=== PATIENT | female | born 1955 | race Caucasian/White ===

== ENCOUNTER 2020-09-07 22:07 | Outpatient (RCR) | payer MEDICARE, OTHER, SELFPAY ==
[2016-08-16 11:05] VITALS: BMI 23.2
[2020-09-07] MEDS: COVID-19 VACC, MRNA(PFIZER)/PF 30 MCG/0.3 ML SYRINGE IM (17:28)
[2020-09-28] MEDS: COVID-19 VACC, MRNA(PFIZER)/PF 30 MCG/0.3 ML SYRINGE IM (17:04)
== END 2020-12-12 23:59 ==
LOC: IMMUN 22:07
PROVIDERS: PCP Internal Medicine; Visit Provider Family Medicine
DX: Z23 Encounter for immunization (principal)
CPT/HCPCS: 0001A; 0002A; 91300

== ENCOUNTER → 2021-02-12 07:04 | Outpatient (CLI) | payer MEDICARE, OTHER, SELFPAY ==
[2016-08-16 11:05] VITALS: BMI 23.2
[2021-02-12 10:50] LABS: Vitamin D,25 Hydroxy > 150.0 ng/mL (29.95-100.01)
[2021-02-12 11:02] LABS: ALB/GLOB Ratio 1.1 RATIO (0.9-2.4); AST(SGOT) 17 U/L (15-37); Alanine Aminotransfer ALT/SGPT 22 U/L (13-56); Albumin, Serum 3.9 g/dL (3.2-5.0); Alkaline Phosphatase 101 U/L (45-117); Anion Gap 8 (5-15); BUN 15 mg/dL (7-18); BUN/Creat Ratio 20.9 RATIO (10-20); Calcium,Total 8.9 mg/dL (8.5-10.1); Chloride 109 mmol/L (98-107); Cholesterol 172 mg/dL (200); Creatinine, Serum 0.72 mg/dL (0.55-1.02); EST Glomerular Filtration Rate 86 mL/min (>60); Est Glom Filt Rate - Afr Amer 105 mL/min (>60); Globulin 3.5 g/dL (2.2-4.2); Glucose 86 mg/dL (74-106); High Density Lipoprotein 58 mg/dL; Protein, Total 7.4 g/dL (6.4-8.2); Sodium Level 142 mmol/L (136-145); T4 Free Direct 0.98 ng/dL (0.76-1.46); Thyroid Stim Hormone (TSH) 1.15 uIU/mL (0.358-3.74); Triglycerides 92 mg/dL; Very Low Density Lipoprotein 18 mg/dL (5-40)
== END ==
PROVIDERS: PCP Internal Medicine; Referring Provider Internal Medicine; Visit Provider Internal Medicine
DX: E78.00 Pure hypercholesterolemia, unspecified (principal); E03.9 Hypothyroidism, unspecified; E55.9 Vitamin D deficiency, unspecified
CPT/HCPCS: 36415; 80053; 80061; 82306; 84439; 84443

== ENCOUNTER → 2021-06-06 14:57 | Outpatient (CLI) | payer MEDICARE, OTHER, SELFPAY ==
[2021-06-06 18:07] LABS: Vitamin D,25 Hydroxy 57.2 ng/mL
== END ==
PROVIDERS: PCP Internal Medicine; Referring Provider Internal Medicine; Visit Provider Internal Medicine
DX: E55.9 Vitamin D deficiency, unspecified (principal); I10 Essential (primary) hypertension; E03.9 Hypothyroidism, unspecified; E78.00 Pure hypercholesterolemia, unspecified
CPT/HCPCS: 36415; 82306

== ENCOUNTER 2021-08-05 11:01 | Outpatient (CLI) | payer MEDICARE, OTHER, SELFPAY ==
--- NOTE | 2021-08-05 11:03 | RAD_ITS ---
STUDY: X-RAY CHEST REASON FOR EXAM: Female, 65 years old. cough TECHNIQUE: PA and lateral views of the chest. COMPARISON: 08/16/2016 FINDINGS: The lungs are clear and expanded. There is no demonstrated pleural abnormality. Normal size heart. Normal mediastinum and laurent. Normal visualized pulmonary arteries. Normal visualized aortic arch and descending thoracic aorta. Normal visualized thoracic spine. Normal visualized ribs, clavicles, and shoulders. There is no demonstrated abnormality of the visualized soft tissue structures of the upper abdomen. RAD/Chest PA and Lateral IMPRESSION: Normal x-ray examination of the chest. Electronically Signed: Bao Richter MD at 11:19 EST ,
== END 2021-08-05 23:59 | disposition short-term general hospital (02) ==
LOC: RAD 11:03
PROVIDERS: PCP Internal Medicine; Visit Provider Physician Assistant
DX: R05.9 Cough, unspecified (principal)
CPT/HCPCS: 71046

== ENCOUNTER 2021-09-15 07:41 | Outpatient (CLI) | payer MEDICARE, OTHER, SELFPAY ==
[2021-09-15 08:04] LABS: Absolute Lymphocyte Count 2.13 X10^3/uL (0.83-4.51); Basophil# 0.03 X10^3/uL; Basophil% 0.4 % (0-1); Eosinophil# 0.16 X10^3/uL; Hematocrit 42.4 % (37-47); Hemoglobin 13.8 g/dL (12.0-15.0); Lymphocyte # 2.13 X10^3/ul (0.83-4.51); Lymphocyte % 26.2 % (19-41); Mean Corp Hgb Conc 32.5 g/dL (32-36); Mean Corpuscular Hgb 29.5 pg (27.0-32.0); Mean Corpuscular Volume 90.6 fL (81-99); Mean Platelet Vol. 8.6 fl (6.2-12.0); Monocyte# 0.73 X10^3/uL; NRBC Flagged by Analyzer 0 % (0-5); Neutrophil # 5.04 X10^3/uL (2.7-7.7); Neutrophil % 61.9 % (47-70); Platelet Count 381 K/mm3 (150-450); RBC Distribution Width SD 42.8 fl (35.1-43.9); Red Blood Count 4.68 M/mm3 (4.2-5.4); White Blood Count 8.1 K/mm3 (4.4-11.0)
[2021-09-15 08:42] LABS: AST(SGOT) 17 U/L (15-37); Alanine Aminotransfer ALT/SGPT 22 U/L (13-56); Albumin, Serum 3.5 g/dL (3.2-5.0); Alkaline Phosphatase 106 U/L (45-117); Anion Gap 2 (5-15); BUN 12 mg/dL (7-18); BUN/Creat Ratio 14.5 RATIO (10-20); Chloride 111 mmol/L (98-107); Cholesterol 154 mg/dL (200); Creatinine, Serum 0.83 mg/dL (0.55-1.02); EST Glomerular Filtration Rate 73 mL/min (>60); Est Glom Filt Rate - Afr Amer 88 mL/min (>60); Globulin 3.6 g/dL (2.2-4.2); Glucose 98 mg/dL (74-106); High Density Lipoprotein 51 mg/dL; Potassium 4.4 mmol/L (3.5-5.1); Protein, Total 7.1 g/dL (6.4-8.2); Sodium Level 141 mmol/L (136-145); T4 Free Direct 1.01 ng/dL (0.76-1.46); Thyroid Stim Hormone (TSH) 1.08 uIU/mL (0.358-3.74); Triglycerides 104 mg/dL; Very Low Density Lipoprotein 21 mg/dL (5-40)
[2021-09-17 08:44] LABS: Vitamin D,25 Hydroxy 60.8 ng/mL
== END 2021-09-15 23:59 | disposition home or self-care (01) ==
LOC: LAB 07:44
PROVIDERS: PCP Internal Medicine; Referring Provider Internal Medicine; Visit Provider Internal Medicine
DX: Z00.00 Encounter for general adult medical examination without abnormal findings (principal); Z13.820 Encounter for screening for osteoporosis; E55.9 Vitamin D deficiency, unspecified; E03.9 Hypothyroidism, unspecified; E78.00 Pure hypercholesterolemia, unspecified; I10 Essential (primary) hypertension
CPT/HCPCS: 36415; 80053; 80061; 82306; 84439; 84443; 85025

== ENCOUNTER 2021-09-20 13:52 | Outpatient (CLI) | payer MEDICARE, OTHER, SELFPAY ==
--- NOTE | 2021-09-20 13:54 | BI_ITS ---
MAMMOGRAPHY - BILATERAL SCREENING 3-D TOMOSYNTHESIS REASON FOR EXAM: Female, 65 years old. SCREENING PERTINENT HISTORY: No significant family history. TECHNIQUE: 2-D mammograms and 3-D Tomosynthesis of the breast (s) were performed. CAD was performed. COMPARISON: 05/08/2020 FINDINGS: The breast composition is composed of scattered fibroglandular density. Scattered benign calcifications are seen. No dense spiculated masses or suspicious microcalcifications are identified. No architectural distortion is identified. There is no skin thickening or retraction. There has been no significant change since the prior study. BI/SCRN MAMM (CAD)W/MAMTA BILAT IMPRESSION: No mammographic signs of malignancy. Routine yearly mammograms recommended. ASSESSMENT CATEGORY: BIRADS Category 1: Negative. A letter regarding these results will be sent to the patient by the facility within 30 days. FOLLOW UP RECOMMENDATION: Yearly follow up mammogram recommended. (A) Approximately 10% of breast cancers are not detected by mammography. A normal mammogram should not delay biopsy of a clinically suspicious abnormality. Electronically Signed: Bao Richter MD at 17:16 EDT ,
--- NOTE | 2021-09-20 13:55 | BD_ITS ---
STUDY: DUAL ENERGY X-RAY ABSORPTIOMETRY / DXA REASON FOR EXAM: Female, 65 years old. Z780. The patient is postmenopausal. TECHNIQUE: Bone Mineral Density (BMD) measurements of lumbar spine and bilateral hips were obtained. COMPARISON: None. FINDINGS: Lumbar Spine (L1-L4): g/cm2 (0.890) / T-score (-1.4) / Z-score (0.5) Findings are suggestive of osteopenia with a low fracture risk. Left Femur Total: g/cm2 (0.735) / T-score (-1.7) / Z-score (-0.3) Left Femoral Neck: g/cm2 (0.668) / T-score (-1.6) / Z-score (0.0) Right Femur Total: g/cm2 (0.814) / T-score (-1.0) / Z-score (0.3) Right Femoral Neck: g/cm2 (0.727) / T-score (-1.1) / Z-score (0.6) BD/Dexa Bone Density Study IMPRESSION: The patient is considered osteopenic as outlined below according to World Charlie Organization (WHO) criteria with a moderate fracture risk. Reference Information: The T-score is the number of standard deviations above or below the standard which is normal for young adults at their peak bone mineral density. The World Health Organization (WHO) interprets the T-scores as follows: Above -1 Normal bone density Between -1 and -2.5 Osteopenia Equal to / or below -2.5 Osteoporosis As a practical clinical guideline, osteopenia may be graded as follows: Mild -1 through -1.5 Moderate -1.6 through -2.0 Severe -2.1 through -2.4 The Z-score is the number of standard deviations above or below age-matched controls. A Z-score of less than -1.5 would be considered abnormal. References: 1. NIH Osteoporosis and Related Bone Diseases www osteo.org 2. International Society for Clinical Densitometry www iscd.org 3. National Osteoporosis Foundation www nof.org Electronically Signed: Americo Mcallister MD at 14:28 EDT ,
== END 2021-09-20 23:59 | disposition home or self-care (01) ==
LOC: OPBD 13:52
PROVIDERS: PCP Internal Medicine; Referring Provider Internal Medicine; Visit Provider Internal Medicine
DX: Z12.31 Encounter for screening mammogram for malignant neoplasm of breast (principal); Z13.820 Encounter for screening for osteoporosis; Z78.0 Asymptomatic menopausal state
CPT/HCPCS: 77063; 77067; 77080

== ENCOUNTER → 2022-11-18 | Outpatient (CLI) | payer MEDICARE, OTHER, SELFPAY ==
[2022-11-18 10:26] LABS: Absolute Lymphocyte Count 1.78 X10^3/uL (0.83-4.51); Absolute Neutrophil Count 3.7 X10^3/uL (2.0-7.7); Basophil# 0.02 X10^3/uL; Basophil% 0.3 % (0-1); Eosinophil# 0.16 X10^3/uL; Eosinophils% 2.5 % (0-5); Hematocrit 42.2 % (37-47); Hemoglobin 12.8 g/dL (12.0-15.0); Lymphocyte # 1.78 X10^3/ul (0.83-4.51); Lymphocyte % 28.3 % (19-41); Mean Corp Hgb Conc 30.3 g/dL (32-36); Mean Corpuscular Hgb 28.4 pg (27.0-32.0); Mean Corpuscular Volume 93.6 fL (81-99); Mean Platelet Vol. 9.6 fl (6.2-12.0); Monocyte# 0.65 X10^3/uL; Monocyte% 10.4 % (0-10); NRBC Flagged by Analyzer 0 % (0-5); Neutrophil # 3.66 X10^3/uL (2.7-7.7); Neutrophil % 58.3 % (47-70); Platelet Count 397 K/mm3 (150-450); RBC Distribution Width SD 44.6 fl (35.1-43.9); Red Blood Count 4.51 M/mm3 (4.2-5.4); White Blood Count 6.3 K/mm3 (4.4-11.0)
[2022-11-18 10:41] LABS: Vitamin D,25 Hydroxy 47.6 ng/mL
[2022-11-18 10:50] LABS: ALB/GLOB Ratio 0.8 RATIO (0.9-2.4); AST(SGOT) 20 U/L (15-37); Alanine Aminotransfer ALT/SGPT 24 U/L (13-56); Albumin, Serum 3.3 g/dL (3.2-5.0); Alkaline Phosphatase 98 U/L (45-117); Anion Gap 5 (5-15); BUN 24 mg/dL (7-18); BUN/Creat Ratio 31.9 RATIO (10-20); Calcium,Total 8.7 mg/dL (8.5-10.1); Chloride 111 mmol/L (98-107); Cholesterol 151 mg/dL (200); Creatinine, Serum 0.75 mg/dL (0.55-1.02); EST Glomerular Filtration Rate 81 mL/min (>60); Est Glom Filt Rate - Afr Amer 98 mL/min (>60); Globulin 3.9 g/dL (2.2-4.2); Glucose 90 mg/dL (74-106); High Density Lipoprotein 56 mg/dL; Protein, Total 7.2 g/dL (6.4-8.2); Sodium Level 142 mmol/L (136-145); T4 Free Direct 0.91 ng/dL (0.76-1.46); Thyroid Stim Hormone (TSH) 1.27 uIU/mL (0.358-3.74); Triglycerides 80 mg/dL; Very Low Density Lipoprotein 16 mg/dL (5-40)
== END | disposition home or self-care (01) ==
PROVIDERS: PCP Internal Medicine; Referring Provider Internal Medicine; Visit Provider Internal Medicine
DX: I10 Essential (primary) hypertension (principal); E78.00 Pure hypercholesterolemia, unspecified; E03.9 Hypothyroidism, unspecified; E55.9 Vitamin D deficiency, unspecified
CPT/HCPCS: 36415; 80053; 80061; 82306; 84439; 84443; 85025

== ENCOUNTER 2023-05-30 18:38 | Emergency (ER) | payer MEDICARE, OTHER, SELFPAY ==
[2023-05-30 18:39] VITALS: BP 141/100; PULSE 78; RESP 16; TEMP 36.8; O2SAT 100; BMI 27.4
--- NOTE | 2023-05-30 19:04 | EDS_ITS ---
HPI History of Present Illness HPI Narrative: Patient presents with left hand injury that occurred after a fall today. Patient states she tripped and fell. Patient landed on her outstretched left hand. Patient describes her pain as aching. Patient states nothing makes it worse and nothing makes it better. Patient denies any paresthesias or weakness. Patient denies any head injury or loss of consciousness. Patient states she has been unable to remove her rings since the fall. Chief Complaint: Upper Extremity Injury Informant: patient Occured/Mechanism Mechanism/Context: Yes fall Onset/Context/Timing Onset: Today Context: Sudden Onset Quality of Pain: Aching Location: Left hand Worsened by: Nothing Relieved by: Nothing Associated Symptoms Associated Symptoms: Negative for Parasthesia, Weakness or Loss of Funtion PFSH PFSH Medical History Depression Hyperlipidemia Hypothyroid Home Medications ergocalciferol (vitamin D2) 1,250 mcg (50,000 unit) capsule (Vitamin D2) 50,000 unit PO Q14D 08/16/16 [History Last Taken Unknown] levothyroxine 25 mcg tablet 50 mcg PO DAILY 08/16/16 [History Last Taken Unknown] atorvastatin 20 mg tablet 20 mg PO QHS 07/29/21 [History Last Taken Unknown] levothyroxine 50 mcg tablet (Euthyrox) 50 mcg PO DAILY 07/29/21 [History Last Taken Unknown] sertraline 50 mg tablet 50 mg PO DAILY 07/29/21 [History Last Taken Unknown] dextromethorphan-guaifenesin 5 mg-100 mg/5 mL oral liquid (Robitussin Cough- Chest Congestion DM) 10 ml PO Q8H PRN cough #237 mL 08/05/21 [Rx Last Taken Unknown] Allergy/AdvReac Type Severity Reaction Status Date / Time sulfamethoxazole Allergy Rash Verified 05/30/23 18:38 [From Bactrim] trimethoprim [From Bactrim] Allergy Rash Verified 05/30/23 18:38 Surgical History H/O knee surgery History of colon resection Social History Smoking Status: Former smoker ROS ROS ED Constitutional Constitutional ED: Denies chills or fever(s) Eyes Eyes: Denies blurry vision or change in vision ENT ENT ED: Denies rhinorrhea or sore throat Cardiovascular Cardiovascular: Denies chest pain or palpitations Respiratory/Chest Respiratory/Chest: Denies cough or dyspnea Gastrointestinal Gastrointestinal: Reports nausea; Denies vomiting Genitourinary Genitourinary ED: Denies dysuria or hematuria Musculoskeletal Musculoskeletal: Denies back pain or neck pain Integumentary Denies abscess or rash Neurologic Neurologic: Denies headache(s) or weakness Allergic/Immunologic Allergic/Immunologic ED: Denies mouth swelling or urticaria EXAM Physical Exam Const Vital Signs: 05/30/23 18:39 Temperature 98.3 F Temperature Source Temporal Pulse Rate 78 Respiratory Rate 16 Blood Pressure 141/100 H Blood Pressure Mean 113 Pulse Ox 100 Oxygen Delivery Method Room Air Positive well nourished and well developed General Appearance ED: well developed and NAD HEENT Reports moist mucous membranes Neck full ROM and supple Extremity Extremity Narrative: There is numbness, edema, and ecchymosis over the fourth and fifth metacarpal area. There is no obvious deformity noted. Range of motion was limited in all motions of the fourth and fifth digits secondary to pain. Radial pulses are equal bilaterally. Sensation was intact to light touch in the radial, median, and ulnar areas. Strength is 5/5 in the radial, median, and ulnar areas. Neuro oriented x3, CN's II-XII intact bilaterally, moves all extremities, no focal motor deficits and no sensory deficits noted Sensorium / Orientation: alert Motor Exam: strength 5/5 throughout Psych mental status grossly normal MDM MDM MDM Narrative Medical decision making narrative: Differential diagnosis includes sprain, fracture, and contusion. X-rays of the left hand will be obtained to assess for fracture. Radiography Diagnostic Testing: X-rays of the left hand were obtained. There are 3 views. On my independent interpretation, there is no acute fracture or dislocation. Radiologist also interpreted the x-rays and agrees. Treatment and Re-Evaluation Narrative: Patient was advised of her findings. Patient was instructed to ice and elevate the left hand. Patient was given a Velcro wrist splint. Patient was instructed to use Tylenol or ibuprofen as needed for pain. Patient was instructed to follow-up with her primary care physician in 5 to 7 days. Patient understood and was agreeable with the plan. All questions were answered. Discharge Plan Triage Chief Complaint: Upper Extremity Injury ED Provider: Jorden Mejia Dx/Rx/DC Orders Clinical Impression: Fall, Contusion of left hand, initial encounter Instructions: ED Hand Contusion Prescriptions: No Action levothyroxine [Euthyrox] 50 mcg tablet 50 mcg PO DAILY atorvastatin 20 mg tablet 20 mg PO QHS sertraline 50 mg tablet 50 mg PO DAILY Robitussin Cough-Chest [place] DM 5-100 mg/5 mL liquid 10 ml PO Q8H PRN (Reason: cough) Qty: 237 0RF levothyroxine 25 MCG tablet 50 mcg PO DAILY ergocalciferol (vitamin D2) [Vitamin D2] 50,000 UNIT capsule 50,000 unit PO Q14D Primary Care Provider: Cosmo Romano Referrals: Cosmo Romano MD [Primary Care Provider] - 5-7 Days Disposition Disposition: Home, Self Care
--- NOTE | 2023-05-30 19:50 | RAD_ITS ---
STUDY: X-RAY - LEFT HAND REASON FOR EXAM: Female, 67 years old. Injury/Pain TECHNIQUE: 3 view(s) of the hand. COMPARISON: None. FINDINGS: Normal radiocarpal articulation. Normal distal radioulnar joint. Normal visualized carpal bones. Normal carpal articulations Normal carpometacarpal articulation of the thumb. Normal second through fifth carpometacarpal joints. Normal metacarpi. Normal metacarpophalangeal joint of the thumb. Normal interphalangeal joint of the thumb. Normal proximal and distal phalanges of the thumb. Normal metacarpophalangeal joints of the second through fifth fingers. Normal proximal interphalangeal joints of the second through fifth fingers. Mild degenerative changes of the DIP joints Normal phalanges of the second through fifth fingers. The soft tissue structures are unremarkable. RAD/Hand Min 3 Views IMPRESSION: Mild degenerative changes. No acute fracture or dislocation Electronically Signed: Lexa Roman MD at 20:11 EST ,
== END 2023-05-30 21:16 | disposition home or self-care (01) ==
PROVIDERS: Emergency Provider Emergency Medicine; PCP Internal Medicine; Visit Provider Emergency Medicine
DX: S60.222A Contusion of left hand, initial encounter (principal); Z87.891 Personal history of nicotine dependence; E78.5 Hyperlipidemia, unspecified; W01.0XXA Fall on same level from slipping, tripping and stumbling without subsequent striking against object, initial encounter
CPT/HCPCS: 73130; 99283

== ENCOUNTER → 2023-09-16 | Outpatient (CLI) | payer MEDICARE, OTHER, SELFPAY ==
--- OUTSIDE RECORDS SUMMARY | 2023-09-16 08:02 | XMS RPT_ITS | CCD ---
Author Name Unknown Address [address] [place] [address] Organization [facility] Care Team Providers Care Business Administrator Name Role Phone HOLDEN WEBB Unavailable Unavailable HOLDEN WEBB Unavailable Unavailable LATOUF, BUTROS Unavailable Unavailable MANJU ALFARO Unavailable Unavailable BECKY CORONADO Unavailable Unavailabl e HOLDEN WEBB Unavailable Unavailable LATOUF, BUTROS Unavailable Unavailable LATOUF, BUTROS Unavailable Unavailable LATOUF, BUTROS Unavailable Unavailable NO REFERRING DR Unavailable Unavailable PARANJAPE, ACS G Unavailable Unavailable PARANJAPE, ACS G Unavailable Unavailable KENNY RILEY Unavailable Unavailable UNKNOWN, PROVIDER Unavailable Unavailable LATOUF, BUTROS Unavailable Unavailable LATOUF, BUTROS Unavailable Unavailable LATOUF, BUTROS Unavailable Unavailable LATOUF, BUTROS Unavailable Unavailable LATOUF, BUTROS Unavailable Unavailable LATOUF, BUTROS Unavailable Unavailable LATSABINO BOUCHER MD Admitting Unavailable SABINO BALBUENA MD Attending Unavailable SABINO BALBUENA MD Primary Care Unavailable SABINO BALBUENA MD Consulting Unavailable PROVIDER, UNKNOWN Consulting Unavailable PROVIDER, UNKNOWN Consulting Unavailable PROVIDER, UNKNOWN Consulting Unavailable SABINO BALBUENA MD Admitting Unavailable SABINO BALBUENA MD Attending Unavailable SABINO BALBUENA MD Primary Care Unavailable SABINO BALBUENA MD Consulting Unavailable PROVIDER, UNKNOWN Consulting Unavailable PROVIDER, UNKNOWN Consulting Unavailable PROVIDER, UNKNOWN Consulting Unavailable SABINO BALBUENA MD Admitting Unavailable LATOUFSABINO MD Attending Unavailable LATOUSABINO Stoner MD Primary Care Unavailable SABINO BALBUENA MD Consulting Unavailable PROVIDER, UNKNOWN Consulting Unavailable PROVIDER, UNKNOWN Consulting Unavailable PROVIDER, UNKNOWN Consulting Unavailable SABINO BALBUENA MD Admitting Unavailable SABINO BALBUENA MD Attending Unavailable SABINO BALBUENA MD Primary Care Unavailable SABINO BALBUENA MD Consulting Unavailable PROVIDER, UNKNOWN Consulting Unavailable PROVIDER, UNKNOWN Consulting Unavailable PROVIDER, UNKNOWN Consulting Unavailable Allergies Allergy Classification Reported Allergen(s) Allergy Type Date of Onset Reaction(s) Facility (2 sources) sulfamethoxazole / trimethoprim; Translations: [BACTRIM] Drug Allergy [facility] Rep[facility] Problems Active Problems Problem Classification Problem Date Documented Da te Episodic/Chronic Anxiety disorders (1 source) Anxiety disorder, unspecified; Translations: [ANXIETY DISORDER UNSPECI] Onset: 08-04-2016 Chronic Disorders of lipid metabolism (2 sources) Hyperlipidemia, unspecified; Translations: [Pure hypercholesterolemi a, unspecified] Onset: 08-04-2016 Chronic Essential hypertension (3 sources) Essential (primary) hypertension; Translations: [ESSENTIAL PRIMARY HYPERT] Onset: 08-04-2016 Chronic Mood disorders (1 source) Major depressive disorder, single episode, unspecified; Translations: [GRUPO DEPRESS D/O SINGLE E] Onset: 08-04-2016 Nausea and vomiting (2 sources) Vomiting, unspecified; Translations: [VOMITING UNSPECIFIED] Onset: 08-04-2016 Nutritional deficiencies (2 sources) Vitamin D deficiency, unspecified; Translations: [Vitamin D deficiency, unspecified] Onset: 06-13-2022 Chronic Osteoarthritis (1 source) Unspecified osteoarthritis, unspecified site; Translations: [UNSPECIFIED OSTEOARTHRIT] Onset: 08-04-2016 Chronic Other connective tissue disease (1 source) Presence of left artificial knee joint; Translations: [PRESENCE LEFT ARTIFICIAL] Onset: 08-04-2016 Chronic Other nutritional; endocrine; and metabolic disorders (1 source) Hypomagnesemia; Translations: [HYPOMAGNESEMIA] Onset: 08-04-2016 Chronic Residual codes; unclassified (1 source) Other amnesia; Translations: [Other amnesia] Onset: 12-10-2022 Episodic Thyroid disorders (2 sources) Hypothyroidism, unspecified; Translations: [HYPOTHYROIDISM UNSPECIFI] Onset: 08-04-2016 Chronic Unclassified (1 source) Encounter for screening mammogram for malignant neoplasm of breast / Z12.31(ICD-10) Onset: 01-09-2018 Unclassified (1 source) Encounter for general adult medical examination without abnormal findings / Z00.00(ICD-10) Onset: 01-09-2018 Past or Other Problems Problem Classification Problem Date Documented Da te Episodic/Chronic Fluid and electrolyte disorders (1 source) Hypokalemia; Translations: [HYPOKALEMIA] Onset: 08-04-2016 Episodic Intestinal obstruction without hernia (1 source) Ileus, unspecified; Translations: [ILEUS UNSPECIFIED] Onset: 08-04-2016 Episodic Other gastrointestinal disorders (1 source) Other specified functional intestinal disorders; Translations: [OTH SPEC FUNC INTESTINAL] Onset: 08-04-2016 Episodic Screening or history of mental health and substance abuse (1 source) Personal history of nicotine dependence; Translations: [PERSONAL HISTORY OF AARON] Onset: 08-04-2016 Episodic Urinary tract infections (1 source) Urinary tract infection, site not specified; Translations: [UTI SITE NOT SPECIFIED] Onset: 08-04-2016 Episodic Results Test Name Value Interpretation Reference Range Facil ity Encounters Encounter Date Encounter Type Care Provider Facility Start: 12-10-2022 ambulatory SABINO DILLARD [facility] Start: 06-13-2022 ambulatory SABINO DILLARD [facility] Start: 06-07-2022 ambulatory SABINO DILLARD [facility] Start: 01-09-2018 End: 01-10-2018 [facility]: 06-06-2017 End: 06-07-2017 Ambulatory [facility] Facility:[facility] Start: 05-01-2017 End: 05-01-2017 Ambulatory HOLDEN WEBB Facility:A Start: 04-29-2017 End: 04-30-2017 Ambulatory HOLDEN WEBB Facility:A Start: 08-04-2016 End: 08-08-2016 Evaluation and management of inpatient NO REFERRING DR Facility:[facility] Payers Date Payer Category Payer Medicare [id number] 2017 Unknown [id number] 1955 Unknown [id number] 1955 Unknown [id number] 1955 Unknown [id number] [id number] 1955 Unknown [id number] [id number] Unknown [id number] Summary Purpose Family History No Family History Records FoundNo Family History Records FoundNo Family History Records FoundNo Family History Records FoundNo Family History Records Found Advance Directives No Advanced Directives Records FoundNo Advanced Directives Records FoundNo Advanced Directives Records FoundNo Advanced Directives Records FoundNo Advanced Directives Records Found Additional Source Comments INFORMATION SOURCE (unrecogn ized section and content) DATE CREATED AUTHOR AUTHOR'S ORGANIZ ATION 12/31/2017 [facility] DATE CREATED AUTHOR AUTHOR'S ORGANIZ ATION 01/20/2018 [facility] DATE CREATED AUTHOR AUTHOR'S ORGANIZ ATION 01/30/2020 [facility] DATE CREATED AUTHOR AUTHOR'S ORGANIZ ATION 12/15/2022 [facility] FOR RECORDS PERTAINING TO PATIENTS WHO ARE OR HAVE BEEN ENROLLED IN A CHEMICAL DEPENDENCY/SUBSTANCEABUSE PROGRAM, SOME INFORMATION MAY BE OMITTED. This clinical summary was aggregated from multiple sources. Caution should be exercised in using it in the provision of clinical care. This summary normalizes information from multiple sources, and as a consequence, information in this document may materially change the coding, format and clinical context of patient data. In addition, data may be omitted in some cases. CLINICAL DECISIONS SHOULD BE BASED ON THE PRIMARY CLINICAL RECORDS. [facility]. provides no warranty or guarantee of the accuracy or completeness of information in this document.
[2023-09-16 10:15] LABS: Absolute Lymphocyte Count 1.85 X10^3/uL (0.83-4.51); Absolute Neutrophil Count 4.2 X10^3/uL (2.0-7.7); Basophil# 0.04 X10^3/uL; Basophil% 0.6 % (0-1); Eosinophil# 0.15 X10^3/uL; Eosinophils% 2.1 % (0-5); Hematocrit 40.4 % (37-47); Hemoglobin 12.6 g/dL (12.0-15.0); Lymphocyte # 1.85 X10^3/ul (0.83-4.51); Lymphocyte % 26.5 % (19-41); Mean Corp Hgb Conc 31.2 g/dL (32-36); Mean Corpuscular Hgb 28.7 pg (27.0-32.0); Mean Platelet Vol. 9.3 fl (6.2-12.0); Monocyte# 0.73 X10^3/uL; Monocyte% 10.5 % (0-10); NRBC Flagged by Analyzer 0 % (0-5); Neutrophil # 4.19 X10^3/uL (2.7-7.7); Platelet Count 368 K/mm3 (150-450); RBC Distribution Width CV 13.2 % (11.6-14.6); RBC Distribution Width SD 44.7 fl (35.1-43.9); Red Blood Count 4.39 M/mm3 (4.2-5.4)
[2023-09-16 10:29] LABS: Vitamin B12 237 pg/mL (211-911); Vitamin D,25 Hydroxy 37.3 ng/mL
[2023-09-16 11:08] LABS: ALB/GLOB Ratio 0.9 RATIO (0.9-2.4); AST(SGOT) 25 U/L (15-37); Alanine Aminotransfer ALT/SGPT 24 U/L (13-56); Albumin, Serum 3.4 g/dL (3.2-5.0); Alkaline Phosphatase 85 U/L (45-117); Anion Gap 5 (5-15); BUN 16 mg/dL (7-18); BUN/Creat Ratio 21.8 RATIO (10-20); Calcium,Total 8.4 mg/dL (8.5-10.1); Chloride 110 mmol/L (98-107); Cholesterol 158 mg/dL (200); Creatinine, Serum 0.73 mg/dL (0.55-1.02); EST Glomerular Filtration Rate 83 mL/min (>60); Est Glom Filt Rate - Afr Amer 101 mL/min (>60); Globulin 3.8 g/dL (2.2-4.2); Glucose 92 mg/dL (74-106); High Density Lipoprotein 66 mg/dL; Protein, Total 7.2 g/dL (6.4-8.2); Sodium Level 141 mmol/L (136-145); Thyroid Stim Hormone (TSH) 2.82 uIU/mL (0.358-3.74); Triglycerides 57 mg/dL; Very Low Density Lipoprotein 11 mg/dL (5-40)
== END | disposition home or self-care (01) ==
LOC: MTLAB 07:49
PROVIDERS: PCP Internal Medicine; Referring Provider Internal Medicine; Visit Provider Internal Medicine
DX: I10 Essential (primary) hypertension (principal); E78.00 Pure hypercholesterolemia, unspecified; E03.9 Hypothyroidism, unspecified; R41.3 Other amnesia; E55.9 Vitamin D deficiency, unspecified
CPT/HCPCS: 36415; 80053; 80061; 82306; 82607; 84443; 85025

== ENCOUNTER → 2023-11-04 | Outpatient (CLI) | payer MEDICARE, OTHER, SELFPAY ==
--- NOTE | 2023-11-04 13:12 | BD_ITS ---
STUDY: DUAL ENERGY X-RAY ABSORPTIOMETRY / DXA REASON FOR EXAM: Female, 67 years old. M85.89 TECHNIQUE: Bone Mineral Density (BMD) measurements of lumbar spine and bilateral hips were obtained. COMPARISON: Comparison is made with prior study of September 20, 2021. FINDINGS: Lumbar Spine (L1-L4): g/cm2 (0.757) / T-score (-2.0) / Z-score (-0.1) Findings are suggestive of osteopenia with a moderate fracture risk. Left Femur Total: g/cm2 (0.757) / T-score (-1.5) / Z-score (0.0) Left Femoral Neck: g/cm2 (0.706) / T-score (-1.3) / Z-score (0.5) Right Femur Total: g/cm2 (0.792) / T-score (-1.2) / Z-score (0.3) Right Femoral Neck: g/cm2 (0.746) / T-score (-0.9) / Z-score (0.9) The T-Scores on the most recent prior examination were: Lumbar Spine (L1-L4): There has been worsening of bone density since the previous examination. Left Femur Total: which represents an improvement of 3.1%. Right Femur Total: which represents a worsening of 2.7%. BD/Dexa Bone Density Study IMPRESSION: The patient is considered osteopenic as outlined below according to World Charlie Organization (WHO) criteria with a moderate fracture risk. There has been worsening of bone density since the previous examination. Reference Information: The T-score is the number of standard deviations above or below the standard which is normal for young adults at their peak bone mineral density. The World Health Organization (WHO) interprets the T-scores as follows: Above -1 Normal bone density Between -1 and -2.5 Osteopenia Equal to / or below -2.5 Osteoporosis As a practical clinical guideline, osteopenia may be graded as follows: Mild -1 through -1.5 Moderate -1.6 through -2.0 Severe -2.1 through -2.4 The Z-score is the number of standard deviations above or below age-matched controls. A Z-score of less than -1.5 would be considered abnormal. References: 1. NIH Osteoporosis and Related Bone Diseases www osteo.org 2. International Society for Clinical Densitometry www iscd.org 3. National Osteoporosis Foundation www nof.org Electronically Signed: Americo Mcallister MD at 15:35 EDT ,
[2023-11-04 16:16] LABS: Vitamin B12 1178 pg/mL (211-911)
== END | disposition home or self-care (01) ==
PROVIDERS: PCP Internal Medicine; Referring Provider Internal Medicine; Visit Provider Internal Medicine
DX: M85.89 Other specified disorders of bone density and structure, multiple sites (principal); R79.89 Other specified abnormal findings of blood chemistry
CPT/HCPCS: 36415; 77080; 82607

== ENCOUNTER → 2024-03-01 | Outpatient (CLI) | payer MEDICARE, OTHER, SELFPAY ==
--- NOTE | 2024-03-01 07:56 | BI_ITS ---
MAMMOGRAPHY - BILATERAL SCREENING REASON FOR EXAM: Female, 68 years old. Routine annual screening examination. PERTINENT HISTORY: Non-contributory. TECHNIQUE: Digital bilateral breast mamta (3D mammographic acquisition) in the CC and MLO projections. 2-D mediolateral oblique (MLO) and craniocaudad (CC) views of both breasts were obtained. CAD: Full Field Digital Mammography with Computer Added Detection was performed. COMPARISON: Comparison is made with prior study dated September 20, 2021. FINDINGS: Breast Composition: There are scattered areas of fibroglandular density. There are no dominant masses or suspicious calcifications. A clip marker is seen in the slightly upper lateral aspect of the right breast. No other significant abnormalities are identified. There has been no significant change since the prior study. BI/SCRN MAMM (CAD)W/MAMTA BILAT IMPRESSION: Stable bilateral screening mammogram. Yearly follow-up mammogram recommended. (A) ASSESSMENT CATEGORY: BIRADS Category 2: Benign. A letter regarding these results will be sent to the patient by the facility within 30 days. Approximately 10% of breast cancers are not detected by mammography. A normal mammogram should not delay biopsy of a clinically suspicious abnormality. [id number] Electronically Signed: Americo Mcallister MD at 8:35 EDT ,
== END | disposition home or self-care (01) ==
LOC: OPBI 07:55
PROVIDERS: PCP Internal Medicine; Referring Provider Internal Medicine; Visit Provider Internal Medicine
DX: Z12.31 Encounter for screening mammogram for malignant neoplasm of breast (principal)
CPT/HCPCS: 77063; 77067

== ENCOUNTER → 2024-06-07 | Outpatient (CLI) | payer MEDICARE, OTHER, SELFPAY ==
[2024-06-07 10:32] LABS: Absolute Lymphocyte Count 1.55 X10^3/uL (0.83-4.51); Absolute Neutrophil Count 3.7 X10^3/uL (2.0-7.7); Basophil# 0.04 X10^3/uL; Basophil% 0.7 % (0-1); Eosinophil# 0.19 X10^3/uL; Eosinophils% 3.1 % (0-5); Hematocrit 39.7 % (37-47); Hemoglobin 12.2 g/dL (12.0-15.0); Lymphocyte # 1.55 X10^3/ul (0.83-4.51); Lymphocyte % 25.2 % (19-41); Mean Corp Hgb Conc 30.7 g/dL (32-36); Mean Corpuscular Hgb 28.2 pg (27.0-32.0); Mean Corpuscular Volume 91.9 fL (81-99); Mean Platelet Vol. 9.3 fl (6.2-12.0); Monocyte# 0.64 X10^3/uL; Monocyte% 10.4 % (0-10); NRBC Flagged by Analyzer 0 % (0-5); Neutrophil % 60.3 % (47-70); Platelet Count 391 K/mm3 (150-450); RBC Distribution Width CV 13.2 % (11.6-14.6); Red Blood Count 4.32 M/mm3 (4.2-5.4); White Blood Count 6.1 K/mm3 (4.4-11.0)
[2024-06-07 10:58] LABS: Vitamin B12 1104 pg/mL (211-911); Vitamin D,25 Hydroxy 42.6 ng/mL
[2024-06-07 11:16] LABS: AST(SGOT) 22 U/L (15-37); Alanine Aminotransfer ALT/SGPT 23 U/L (13-56); Albumin, Serum 3.6 g/dL (3.2-5.0); Alkaline Phosphatase 98 U/L (45-117); Anion Gap 6 (5-15); BUN 14 mg/dL (7-18); BUN/Creat Ratio 18.7 RATIO (10-20); Chloride 111 mmol/L (98-107); Cholesterol 143 mg/dL (200); Creatinine, Serum 0.75 mg/dL (0.55-1.02); EST Glomerular Filtration Rate 81 mL/min (>60); Est Glom Filt Rate - Afr Amer 98 mL/min (>60); Globulin 3.5 g/dL (2.2-4.2); Glucose 94 mg/dL (74-106); High Density Lipoprotein 80 mg/dL; Potassium 3.8 mmol/L (3.5-5.1); Protein, Total 7.1 g/dL (6.4-8.2); Sodium Level 143 mmol/L (136-145); T4 Free Direct 1.26 ng/dL (0.76-1.46); Thyroid Stim Hormone (TSH) 0.744 uIU/mL (0.358-3.740); Triglycerides 36 mg/dL; Very Low Density Lipoprotein 7 mg/dL (5-40)
== END | disposition home or self-care (01) ==
PROVIDERS: PCP Internal Medicine; Referring Provider Internal Medicine; Visit Provider Internal Medicine
DX: I10 Essential (primary) hypertension (principal); E78.00 Pure hypercholesterolemia, unspecified; E03.9 Hypothyroidism, unspecified; E55.9 Vitamin D deficiency, unspecified
CPT/HCPCS: 36415; 80053; 80061; 82306; 82607; 84439; 84443; 85025

== ENCOUNTER → 2024-12-16 | Outpatient (CLI) | payer OTHER, MEDICARE, SELFPAY ==
[2024-12-16 10:44] LABS: Absolute Lymphocyte Count 1.65 X10^3/uL (0.83-4.51); Absolute Neutrophil Count 3.8 X10^3/uL (2.0-7.7); Basophil# 0.03 X10^3/uL; Basophil% 0.5 % (0-1); Eosinophils% 1.6 % (0-5); Hematocrit 39.9 % (37-47); Hemoglobin 12.7 g/dL (12.0-15.0); Lymphocyte # 1.65 X10^3/ul (0.83-4.51); Lymphocyte % 26.5 % (19-41); Mean Corp Hgb Conc 31.8 g/dL (32-36); Mean Corpuscular Hgb 29.1 pg (27.0-32.0); Mean Corpuscular Volume 91.3 fL (81-99); Mean Platelet Vol. 9.4 fl (6.2-12.0); Monocyte# 0.68 X10^3/uL; Monocyte% 10.9 % (0-10); NRBC Flagged by Analyzer 0 % (0-5); Neutrophil # 3.75 X10^3/uL (2.7-7.7); Neutrophil % 60.3 % (47-70); Platelet Count 409 K/mm3 (150-450); RBC Distribution Width CV 13.1 % (11.6-14.6); RBC Distribution Width SD 44.1 fl (35.1-43.9); Red Blood Count 4.37 M/mm3 (4.2-5.4); White Blood Count 6.2 K/mm3 (4.4-11.0)
[2024-12-16 13:03] LABS: ALB/GLOB Ratio 1.6 RATIO (0.9-2.4); AST(SGOT) 21 U/L (<=31); Alanine Aminotransfer ALT/SGPT 13 U/L (<=34); Albumin, Serum 4.2 g/dL (3.4-4.8); Alkaline Phosphatase 85 U/L (35-104); Anion Gap 12 (5-15); BUN 8 mg/dL (4-19); BUN/Creat Ratio 11.3 RATIO (10-20); Calcium,Total 9.3 mg/dL (7.6-11.0); Carbon Dioxide 23.3 mmol/L (21.0-32.0); Chloride 103 mmol/L (98-108); Cholesterol 157 mg/dL (<=200); Creatinine, Serum 0.73 mg/dL (0.70-1.20); EST Glomerular Filtration Rate 88 (>60); Globulin 2.6 g/dL (2.2-4.2); Glucose 92 mg/dL (70-99); High Density Lipoprotein 73 mg/dL; Low Density Lipoprotein Calc. 71 mg/dL; Potassium 4.5 mmol/L (3.3-5.1); Protein, Total 6.8 g/dL (5.9-8.4); Sodium Level 138 mmol/L (133-145); Thyroid Stim Hormone (TSH) 0.943 uIU/mL (0.300-4.200); Total Bilirubin 0.49 mg/dL (0.00-1.30); Triglycerides 69 mg/dL; Very Low Density Lipoprotein 14 mg/dL (5-40); Vitamin B12 1214 pg/mL (180-914); Vitamin D,25 Hydroxy 32.4 ng/mL (30-100); cholesterol:hdl ratio screen 2.16
--- OUTSIDE RECORDS SUMMARY | 2024-12-16 18:45 | XMS RPT_ITS | CCD ---
Author Organization [facility] Care Team Providers Care Organic Chemistry Professor Name Role Phone HOLDEN WEBB Unavailable Unavailable [...] BUTROS Unavailable Unavailable LATOUF, BUTROS Unavailable Unavailable Latouf, Dr. Wilburn Primary Care Provider LatDr. Sabino huynh Referring Provider [phone] BILL Devi Attending Provider [phone] BILL Meeks Attending Provider RUTH FLOWERS Attending Unavailable Latouf, Butros Primary Care Unavailable Latouf, Butros Attending Unavailable Latouf, Butros Referring Unavailable Latouf, Butros Primary Care Unavailable Latouf, Butros Attending Unavailable Latouf, Butros Referring Unavailable Latouf, Butros Primary Care Unavailable Latouf, Butros Attending Unavailable Latouf, Butros Referring Unavailable Latouf, Butros Primary Care Unavailable Denzel Kaiser Attending Unavailable Latouf, Butros Referring Unavailable Latouf, Butros Primary Care Unavailable Latouf, Butros Attending Unavailable Latouf, Butros Referring Unavailable LATOUF, SABINO DILLARD Primary Care Unavailable LATOUF, SABINO DILLARD Consulting Unavailable LATOUF, SABINO DILLARD Attending Unavailable LATOUHerbie, SABINO DILLARD Admitting Unavailable PROVIDER, UNKNOWN Consulting Unavailable PROVIDER, UNKNOWN Consulting Unavailable PROVIDER, UNKNOWN Consulting Unavailable LATSANDER, SABINO DILLARD Primary Care Unavailable LATOUF, SABINO DILLARD Consulting Unavailable LATOUF, SABINO DILLARD Attending Unavailable LATOUF, SABINO DILLARD Admitting Unavailable PROVIDER, UNKNOWN Consulting Unavailable PROVIDER, UNKNOWN Consulting Unavailable PROVIDER, UNKNOWN Consulting Unavailable LATOUF, SABINO DILLARD Consulting Unavailable LATOUF, SABINO DILLARD Attending Unavailable LATOUF, SABINO DILLARD Admitting Unavailable LATOUF, SABINO DILLARD Primary Care Unavailable PROVIDER, UNKNOWN Consulting Unavailable PROVIDER, UNKNOWN Consulting Unavailable PROVIDER, UNKNOWN Consulting Unavailable LATOUF, SABINO DILLARD Consulting Unavailable LATOUF, SABINO DILLARD Attending Unavailable LATOUF, SABINO DILLARD Admitting Unavailable LATOUF, SABINO DILLARD Primary Care Unavailable PROVIDER, UNKNOWN Consulting Unavailable PROVIDER, UNKNOWN Consulting Unavailable PROVIDER, UNKNOWN Consulting Unavailable LATOUF, SABINO DILLARD Primary Care Unavailable LATOUF, SABINO DILLARD Consulting Unavailable LATOUF, SABINO DILLARD Attending Unavailable LATOUF, SABINO DILLARD Admitting Unavailable PROVIDER, UNKNOWN Consulting Unavailable PROVIDER, UNKNOWN Consulting Unavailable PROVIDER, UNKNOWN Consulting Unavailable Allergies Allergy Classification Reported Allergen(s) Allergy Type Date of Onset Reaction(s) Facility (2 sources) sulfamethoxazole / trimethoprim; Translations: [BACTRIM] Drug Allergy [facility] Repository (4 sources) Sulfamethoxazole Drug Allergy 2 [facility] (4 sources) Trimethoprim Drug Allergy 2 [facility] (1 source) Sulfamethoxazole / Trimethoprim; Translations: [SULFAMETHOXAZOLE-TR IMETHOPRIM] Drug Allergy 4 [facility] Repository (1 source) Sulfamethoxazole Drug Allergy 4 [facility] Repository (1 source) Trimethoprim Drug Allergy 4 [facility] Repository Medications Current Medications Medication Drug Class(es) Dates Sig (Normalized) Sig (Original) atorvastatin 20 mg oral tablet (4 sources) HMG-CoA Reductase Inhibitor Start: 07-29-2021 Atorvastatin Active TAB PO July 29, 2021 10:57am Start: 07-29-2021 take 20 mg by mouth at bedtime Atorvastatin Active 20 MG PO AT BEDTIME July 29, 2021 1:00am dextromethorphan hydrobromide 1 mg/ml / guaiFENesin 20 mg/ml oral solution (4 sources) Uncompetitive M-qffmco-R-aspartate Receptor Antagonist, Sigma-1 Agonist Start: 08-05-2021 take 1 mL by mouth every eight hours Dextromethorphan-Guaifenesin (Robitussin Cough-Chest [place] Dm) 5-100 mg/5 mL liquid Active 10 ML PO Q8H 237 August 05, 2021 1:00am ergocalciferol 1.25 mg oral capsule (4 sources) Provitamin D2 Compound Start: 08-16-2016 take 1 capsule by mouth every other week Ergocalciferol (Vitamin D2) (Vitamin D) 50,000 UNIT capsule Active 94285 UNIT PO Q14D August 16, 2016 1:00am levothyroxine sodium 0.05 mg oral tablet (8 sources) l-Thyroxine Start: 07-29-2021 take 1 tablet by mouth once daily Levothyroxine (Euthyrox) 50 mcg tablet Active 50 MCG PO DAILY July 29, 2021 1:00am Start: 08-16-2016 take 50 ug by mouth once daily Levothyroxine Active 50 MCG PO DAILY August 16, 2016 1:00am sertraline 50 mg oral tablet (8 sources) Serotonin Reuptake Inhibitor Start: 07-29-2021 take 50 mg by mouth once daily Sertraline Active 50 MG PO DAILY July 29, 2021 1:00am Start: 08-16-2016 End: 07-29-2021 take 1 tablet by mouth once daily Sertraline (Zoloft) 25 MG tablet Discontinued 25 MG PO DAILY August 16, 2016 1:00am July 29, 2021 10:58am Completed/Discontinued Medications Medication Drug Class(es) Dates Sig (Normalized) Sig (Original) amoxicillin 875 mg / clavulanate 125 mg oral tablet (4 sources) Penicillin-class Antibacterial Start: 07-29-2021 End: 08-05-2021 take 1 tablet by mouth every twelve hours Amoxicillin-Pot Clavulanate Discontinued 1 TABLET PO Q12H 14 July 29, 2021 1:00am August 05, 2021 10:58am metoclopramide 10 mg oral tablet (4 sources) Dopamine-2 Receptor Antagonist Start: 08-16-2016 End: 05-30-2023 take 10 mg by mouth four times daily Metoclopramide Hcl Discontinued 10 MG PO 4 TIMES DAILY August 16, 2016 1:00am May 30, 2023 7:56pm predniSONE 20 mg oral tablet (4 sources) Start: 08-05-2021 End: 05-30-2023 take 20 mg by mouth twice daily Prednisone Discontinued 20 MG PO TWICE A DAY August 05, 2021 1:00am May 30, 2023 7:56pm Problems Active Problems Problem Classification Problem Date Documented Da te Episodic/Chronic Anxiety disorders (1 source) Anxiety disorder, unspecified; Translations: [ANXIETY DISORDER UNSPECI] Onset: 08-04-2016 Chronic Disorders of lipid metabolism (2 sources) Hyperlipidemia, unspecified; Translations: [Pure hypercholesterolemi a, unspecified] Onset: 08-04-2016 Chronic E Codes: Fall (2 sources) Fall; Translations: [Unspecified fall, initial encounter] 05-30-2023 Episodic Essential hypertension (4 sources) Essential (primary) hypertension; Translations: [ESSENTIAL PRIMARY HYPERT] Onset: 08-04-2016 Chronic Immunizations and screening for infectious disease (4 sources) Patient encounter status; Translations: [Encounter for screening for COVID-19] 10-26-2021 Episodic Mood disorders (1 source) Major depressive disorder, single episode, unspecified; Translations: [GRUPO DEPRESS D/O SINGLE E] Onset: 08-04-2016 Nausea and vomiting (2 sources) Vomiting, unspecified; Translations: [VOMITING UNSPECIFIED] Onset: 08-04-2016 Nutritional deficiencies (1 source) Vitamin D deficiency, unspecified; Translations: [Vitamin D deficiency, unspecified] Onset: 10-13-2024 Chronic Osteoarthritis (1 source) Unspecified osteoarthritis, unspecified site; Translations: [UNSPECIFIED OSTEOARTHRIT] Onset: 08-04-2016 Chronic Other connective tissue disease (1 source) Presence of left artificial knee joint; Translations: [PRESENCE LEFT ARTIFICIAL] Onset: 08-04-2016 Chronic Other lower respiratory disease (6 sources) Cough; Translations: [Cough] Episodic Other nutritional; endocrine; and metabolic disorders (1 source) Hypomagnesemia; Translations: [HYPOMAGNESEMIA] Onset: 08-04-2016 Chronic Other screening for suspected conditions (not mental disorders or infectious disease) (3 sources) Encounter for screening mammogram for malignant neoplasm of breast; Translations: [Other specified abnormal findings of blood chemistry] Onset: 03-06-2024 Episodic Other upper respiratory disease (4 sources) Respiratory tract congestion; Translations: [Nasal congestion] 07-29-2021 Episodic Other upper respiratory disease (2 sources) Nasal congestion; Translations: [Other disease of nasal cavity and sinuses] Episodic Other upper respiratory infections (6 sources) Acute sinusitis; Translations: [Acute sinusitis, unspecified] Episodic Superficial injury; contusion (2 sources) Contusion of left hand; Translations: [Contusion of left hand, initial encounter] 05-30-2023 Episodic Syncope (1 source) Syncope and collapse; Translations: [Syncope and collapse] Onset: 01-24-2024 Episodic Thyroid disorders (2 sources) Hypothyroidism, unspecified; Translations: [HYPOTHYROIDISM UNSPECIFI] Onset: 08-04-2016 Chronic Unclassified (1 source) Encounter for screening mammogram for malignant neoplasm of breast / Z12.31(ICD-10) Onset: 01-09-2018 Unclassified (1 source) Encounter for general adult medical examination without abnormal findings / Z00.00(ICD-10) Onset: 01-09-2018 Viral infection (4 sources) Disease caused by 2019-nCoV; Translations: [COVID-19] 08-05-2021 Episodic Past or Other Problems Problem Classification Problem Date Documented Da te Episodic/Chronic Fluid and electrolyte disorders (1 source) Hypokalemia; Translations: [HYPOKALEMIA] Onset: 08-04-2016 Episodic Intestinal obstruction without hernia (1 source) Ileus, unspecified; Translations: [ILEUS UNSPECIFIED] Onset: 08-04-2016 Episodic Other bone disease and musculoskeletal deformities (1 source) Other specified disorders of bone density and structure, unspecified site; Translations: [Other specified disorders of bone density and structure, unspecified site] Onset: 12-22-2023 Episodic Other gastrointestinal disorders (1 source) Other specified functional intestinal disorders; Translations: [OTH SPEC FUNC INTESTINAL] Onset: 08-04-2016 Episodic Residual codes; unclassified (1 source) Other amnesia; Translations: [Other amnesia] Onset: 01-15-2024 Episodic Screening or history of mental health and substance abuse (1 source) Personal history of nicotine dependence; Translations: [PERSONAL HISTORY OF AARON] Onset: 08-04-2016 Episodic Urinary tract infections (1 source) Urinary tract infection, site not specified; Translations: [UTI SITE NOT SPECIFIED] Onset: 08-04-2016 Episodic Results Test Name Value Interpretation Reference Range Facility CBC W/Diff, Automatedon 12-0 Absolute Lymph 1.55 X10 3/uL Normal 0.83-4.51 [facility] Comment on above: Performed By: #### L 503.0105, L100.0100, L500.4050, L506.1000, L500.4100, L501.9520 #### [facility] [address] [place], [address] Absolute Neut 3.7 X10 3/uL Normal 2.0-7.7 [facility] Comment on above: Performed By: #### L 503.0105, L100.0100, L500.4050, L506.1000, L500.4100, L501.9520 #### [facility] [address] [place], [address] Basophils/100 WBC (Bld) 0.7 % Normal 0-1 [facility] Comment on above: Performed By: #### L 503.0105, L100.0100, L500.4050, L506.1000, L500.4100, L501.9520 #### [facility] [address] [place], [address] Eosinophils/100 WBC (Bld) 3.1 % Normal 0-5 [facility] Comment on above: Performed By: #### L 503.0105, L100.0100, L500.4050, L506.1000, L500.4100, L501.9520 #### [facility] [address] [place], [address] Erythrocyte distribution width (RBC) [Ratio] 13.2 % Normal 11.6-14.6 [facility] Comment on above: Performed By: #### L 503.0105, L100.0100, L500.4050, L506.1000, L500.4100, L501.9520 #### [facility] [address] [place], [address] Hematocrit (Bld) [Volume fraction] 39.7 % Normal 37-47 [facility] Comment on above: Performed By: #### L 503.0105, L100.0100, L500.4050, L506.1000, L500.4100, L501.9520 #### [facility] [address] [place], [address] Hemoglobin (Bld) [Mass/Vol] 12.2 g/dL Normal 12.0-15.0 [facility] Comment on above: Performed By: #### L 503.0105, L100.0100, L500.4050, L506.1000, L500.4100, L501.9520 #### [facility] [address] [place], [address] IG% 0.300 Normal 0.0-0.9 [facility] Comment on above: Result Comment: IG% - Immature Granulocytes (promyelocytes, myelocytes and metamyelocytes) > 1% indicates that a LEFT SHIFT is Present. Performed By: #### L 503.0105, L100.0100, L500.4050, L506.1000, L500.4100, L501.9520 #### [facility] [address] [place], [address] Lymphocytes/100 WBC (Bld) 25.2 % Normal 19-41 [facility] Comment on above: Performed By: #### L 503.0105, L100.0100, L500.4050, L506.1000, L500.4100, L501.9520 #### [facility] [address] [place], [address] MCH (RBC) [Entitic mass] 28.2 pg Normal 27.0-32.0 [facility] Comment on above: Performed By: #### L 503.0105, L100.0100, L500.4050, L506.1000, L500.4100, L501.9520 #### [facility] [address] [place], [address] MCHC (RBC) [Mass/Vol] 30.7 g/dL Low 32-36 [facility] Comment on above: Performed By: #### L 503.0105, L100.0100, L500.4050, L506.1000, L500.4100, L501.9520 #### [facility] [address] [place], [address] MCV (RBC) [Entitic vol] 91.9 fL Normal 81-99 [facility] Comment on above: Performed By: #### L 503.0105, L100.0100, L500.4050, L506.1000, L500.4100, L501.9520 #### [facility] [address] [place], [address] Monocytes/100 WBC (Bld) 10.4 % High 0-10 [facility] Comment on above: Performed By: #### L 503.0105, L100.0100, L500.4050, L506.1000, L500.4100, L501.9520 #### [facility] [address] [place], [address] Neutrophils/100 WBC (Bld) 60.3 % Normal 47-70 [facility] Comment on above: Performed By: #### L 503.0105, L100.0100, L500.4050, L506.1000, L500.4100, L501.9520 #### [facility] [address] [place], [address] Nucleated RBC (Bld) [#/Vol] 0 10*3/uL Normal 0-5 [facility] Comment on above: Performed By: #### L 503.0105, L100.0100, L500.4050, L506.1000, L500.4100, L501.9520 #### [facility] [address] [place], [address] Platelet mean volume (Bld) [Entitic vol] 9.3 fL Normal 6.2-12.0 [facility] Comment on above: Performed By: #### L 503.0105, L100.0100, L500.4050, L506.1000, L500.4100, L501.9520 #### [facility] [address] [place], [address] Platelets (Bld) [#/Vol] 391 10*3/uL Normal 150-450 [facility] Comment on above: Performed By: #### L 503.0105, L100.0100, L500.4050, L506.1000, L500.4100, L501.9520 #### [facility] [address] [place], [address] RBC (Bld) [#/Vol] 4.32 10*6/uL Normal 4.2-5.4 [facility] Comment on above: Performed By: #### L 503.0105, L100.0100, L500.4050, L506.1000, L500.4100, L501.9520 #### [facility] [address] [place], [address] RDW SD 45.0 fl High 35.1-43.9 [facility] Comment on above: Performed By: #### L 503.0105, L100.0100, L500.4050, L506.1000, L500.4100, L501.9520 #### [facility] [address] [place], [address] WBC (Bld) [#/Vol] 6.1 10*3/uL Normal 4.4-11.0 [facility] Comment on above: Performed By: #### L 503.0105, L100.0100, L500.4050, L506.1000, L500.4100, L501.9520 #### [facility] [address] [place], [address] Comprehensive Metabolic Prof ilon 06-07-2024 Albumin [Mass/Vol] 3.6 g/dL Normal 3.2-5.0 [facility] Comment on above: Performed By: #### L 503.0105, L100.0100, L500.4050, L506.1000, L500.4100, L501.9520 #### [facility] [address] [place], [address] Albumin/Globulin [Mass ratio] 1.0 {ratio} Normal 0.9-2.4 [facility] Comment on above: Performed By: #### L 503.0105, L100.0100, L500.4050, L506.1000, L500.4100, L501.9520 #### [facility] [address] [place], [address] ALK P 98 U/L Normal 45-117 [facility] Comment on above: Performed By: #### L 503.0105, L100.0100, L500.4050, L506.1000, L500.4100, L501.9520 #### [facility] [address] [place], [address] ALT [Catalytic activity/Vol] 23 U/L Normal 13-56 [facility] Comment on above: Performed By: #### L 503.0105, L100.0100, L500.4050, L506.1000, L500.4100, L501.9520 #### [facility] [address] [place], [address] AST [Catalytic activity/Vol] 22 U/L Normal 15-37 [facility] Comment on above: Performed By: #### L 503.0105, L100.0100, L500.4050, L506.1000, L500.4100, L501.9520 #### [facility] [address] [place], [address] Bilirubin [Mass/Vol] 0.60 mg/dL Normal 0.20-1.00 [facility] Comment on above: Result Comment: For patients on eltrombopag therapy, use of Dimension [place] TBIL is not recommended. Performed By: #### L 503.0105, L100.0100, L500.4050, L506.1000, L500.4100, L501.9520 #### [facility] [address] [place], [address] BUN/CRE 18.7 RATIO Normal 10-20 [facility] Comment on above: Performed By: #### L 503.0105, L100.0100, L500.4050, L506.1000, L500.4100, L501.9520 #### [facility] [address] [place], [address] CA,Total 9.0 mg/dL Normal 8.5-10.1 [facility] Comment on above: Performed By: #### L 503.0105, L100.0100, L500.4050, L506.1000, L500.4100, L501.9520 #### [facility] [address] [place], [address] Chloride [Moles/Vol] 111 mmol/L High 98-107 [facility] Comment on above: Performed By: #### L 503.0105, L100.0100, L500.4050, L506.1000, L500.4100, L501.9520 #### [facility] [address] [place], [address] CO2 [Moles/Vol] 26.0 mmol/L Normal 21.0-32.0 [facility] Comment on above: Performed By: #### L 503.0105, L100.0100, L500.4050, L506.1000, L500.4100, L501.9520 #### [facility] [address] [place], [address] Creatinine [Mass/Vol] 0.75 mg/dL Normal 0.55-1.02 [facility] Comment on above: Result Comment: The validity of the calculated GFR GFRAA in patients over 70 years has not been determined. Clinical correlation is essential. Performed By: #### L 503.0105, L100.0100, L500.4050, L506.1000, L500.4100, L501.9520 #### [facility] [address] [place], [address] EST GFR - AA 98 mL/min Normal >60 [facility] Comment on above: Result Comment: Afri can [place]ian GFR Calc Performed By: #### L 503.0105, L100.0100, L500.4050, L506.1000, L500.4100, L501.9520 #### [facility] [address] [place], [address] GAP 6 Normal 5-15 [facility] Comment on above: Performed By: #### L 503.0105, L100.0100, L500.4050, L506.1000, L500.4100, L501.9520 #### [facility] [address] [place], [address] GFR/1.73 sq M.predicted among non-blacks MDRD (S/P/Bld) [Vol rate/Area] 81 mL/min/{1.73_m2} Normal >60 [facility] Comment on above: Result Comment: Non- GFR Calc Performed By: #### L 503.0105, L100.0100, L500.4050, L506.1000, L500.4100, L501.9520 #### [facility] [address] [place], [address] Globulin (S) [Mass/Vol] 3.5 g/dL Normal 2.2-4.2 [facility] Comment on above: Performed By: #### L 503.0105, L100.0100, L500.4050, L506.1000, L500.4100, L501.9520 #### [facility] [address] [place], [address] Glucose [Mass/Vol] 94 mg/dL Normal 74-106 [facility] Comment on above: Performed By: #### L 503.0105, L100.0100, L500.4050, L506.1000, L500.4100, L501.9520 #### [facility] [address] [place], [address] Potassium [Moles/Vol] 3.8 mmol/L Normal 3.5-5.1 [facility] Comment on above: Performed By: #### L 503.0105, L100.0100, L500.4050, L506.1000, L500.4100, L501.9520 #### [facility] [address] [place], [address] Sodium [Moles/Vol] 143 mmol/L Normal 136-145 [facility] Comment on above: Performed By: #### L 503.0105, L100.0100, L500.4050, L506.1000, L500.4100, L501.9520 #### [facility] [address] [place], [address] T PROT 7.1 g/dL Normal 6.4-8.2 [facility] Comment on above: Performed By: #### L 503.0105, L100.0100, L500.4050, L506.1000, L500.4100, L501.9520 #### [facility] [address] [place], [address] Urea nitrogen [Mass/Vol] 14 mg/dL Normal 7-18 [facility] Comment on above: Performed By: #### L 503.0105, L100.0100, L500.4050, L506.1000, L500.4100, L501.9520 #### [facility] [address] [place], [address] Lipid Profileon 06-07-2024 Cholesterol [Mass/Vol] 143 mg/dL Normal 200 [facility] Comment on above: Result Comment: <200 mg/dL Desirable 200-240 mg/dL Borderline >240 mg/dL High Risk Performed By: #### L 503.0105, L100.0100, L500.4050, L506.1000, L500.4100, L501.9520 #### [facility] [address] [place], [address] Cholesterol in HDL [Mass/Vol] 80 mg/dL Normal [facility] Comment on above: Result Comment: The drugs N-Acetylcysteine and Metamizole may falsely depress this assay. Reference Range HDL <40 mg/dL Low HDL Cholesterol HDL >or= 60 mg/dL High HDL Cholesterol Performed By: #### L 503.0105, L100.0100, L500.4050, L506.1000, L500.4100, L501.9520 #### [facility] [address] [place], [address] Cholesterol in LDL [Mass/Vol] 56 mg/dL Normal 0-130 [facility] Comment on above: Performed By: #### L 503.0105, L100.0100, L500.4050, L506.1000, L500.4100, L501.9520 #### [facility] [address] [place], [address] Cholesterol in VLDL [Mass/Vol] 7 mg/dL Normal 5-40 [facility] Comment on above: Performed By: #### L 503.0105, L100.0100, L500.4050, L506.1000, L500.4100, L501.9520 #### [facility] [address] [place], [address] Triglyceride [Mass/Vol] 36 mg/dL Normal [facility] Comment on above: Result Comment: The drugs N-Acetylcysteine and Metamizole may falsely depress this assay. Serum Triglycerides Reference Interval Normal <150 mg/dL Borderline high 150 - 199 mg/dL High 200 - 499 mg/dL Very High > or = 500 mg/dL Performed By: #### L 503.0105, L100.0100, L500.4050, L506.1000, L500.4100, L501.9520 #### [facility] [address] [place], [address] T4 Free Directon 06-07-2024 T4 FREE DIRECT 1.26 ng/dL Normal 0.76-1.46 [facility] Comment on above: Performed By: #### L 503.0105, L100.0100, L500.4050, L506.1000, L500.4100, L501.9520 #### [facility] [address] [place], [address] Thyroid Stim Hormone (TSH)on 06-07-2024 TSH 0.744 uIU/mL Normal 0.358-3.740 [facility] Comment on above: Performed By: #### L 503.0105, L100.0100, L500.4050, L506.1000, L500.4100, L501.9520 #### [facility] [address] [place], [address] Vitamin B12on 06-07-2024 Cobalamin (Vitamin B12) [Mass/Vol] 1104 pg/mL High 211-911 [facility] Comment on above: Performed By: #### L 503.0105, L100.0100, L500.4050, L506.1000, L500.4100, L501.9520 #### [facility] [address] [place], [address] Vitamin D,25 Hydroxyon 06-07 Vitamin D 25-OH 42.6 ng/mL Normal [facility] Comment on above: Result Comment: Dilcia min D 25(OH) Status Range Deficiency <20 ng/mL (50nmol/L) Insufficiency 20 - 30 ng/mL (50 - 75 nmol/L) Sufficiency 30 - 100 ng/mL (75 - 250 nmol/L) Toxicity >100 ng/mL (>250 nmol/L) Performed By: #### L 503.0105, L100.0100, L500.4050, L506.1000, L500.4100, L501.9520 #### [facility] [address] [place], [address] SCRN MAMM (CAD)W/MAMTA BILATo n 03-01-2024 SCRN MAMM (CAD)W/MAMTA BILAT [facility] Imaging Services [address] [place], [place] [address] SCRN MAMM (CAD)W/MAMTA BILAT MR#: [id number] Acct: [id number] Name: SMITH JIMENEZ Rep #: [id number] : 1955 F 68 From: Americo cardenas MD PCP: Dr. Sabino Romano MD Status: [facility] Study: SCRN MAMM (CAD)W/MAMTA BILAT Date of Exam: 02/05 12/28 Exam# [id number] Ordering Dr: Sabino Romano MD :[id number] MAMMOGRAPHY - BILATERAL SCREENING REASON FOR EXAM: Female, 68 years old. Routine annual screening examination. PERTINENT HISTORY: Non-contributory. TECHNIQUE: Digital bilateral breast mamta (3D mammographic acquisition) in the CC and MLO projections. 2-D mediolateral oblique (MLO) and craniocaudad (CC) views of both breasts were obtained. CAD: Full Field Digital Mammography with Computer Added Detection was performed. COMPARISON: Comparison is made with prior study dated September 20, 2021. FINDINGS: Breast Composition: There are scattered areas of fibroglandular density. There are no dominant masses or suspicious calcifications. A clip marker is seen in the slightly upper lateral aspect of the right breast. No other significant abnormalities are identified. There has been no significant change since the prior study. BI/SCRN MAMM (CAD)W/MAMTA BILAT IMPRESSION: Stable bilateral screening mammogram. Yearly follow-up mammogram recommended. (A) ASSESSMENT CATEGORY: BIRADS Category 2: Benign. A letter regarding these results will be sent to the patient by the facility within 30 days. Approximately 10% of breast cancers are not detected by mammography. A normal mammogram should not delay biopsy of a clinically suspicious abnormality. [id number] Electronically Signed: Americo Mcallister MD at 8:35 EDT Reading Location ID and State: [address] [place] [address] , Service support , CC: Dr. Sabino Romano MD Roof Assembler: Signed Normal [facility] POCT GLUCOSE METERon 024 Glucose [Mass/Vol] 79 mg/dL Normal 74-118 [facility] Comment on above: Result Comment: ACCE PT RESULTS Performed By: #### P OC117 #### [facility] [address] [place] [address] [facility] Dexa Bone Density Studyon Dexa Bone Density Study [facility] Imaging Services [address] [place] [address] Dexa Bone Density Study MR#: [id number] Acct: [id number] Name: SMITH JIMENEZ Rep #: [id number] : 1955 F 67 From: Americo cardenas MD PCP: Dr. Sabino Romano MD Status: [facility] Study: Dexa Bone Density Study Date of Exam: 11/04/23 Exam# [id number] Ordering Dr: Sabino Romano MD :[id number] STUDY: DUAL ENERGY X-RAY ABSORPTIOMETRY / DXA REASON FOR EXAM: Female, 67 years old. M85.89 TECHNIQUE: Bone Mineral Density (BMD) measurements of lumbar spine and bilateral hips were obtained. COMPARISON: Comparison is made with prior study of September 20, 2021. FINDINGS: Lumbar Spine (L1-L4): g/cm2 (0.757) / T-score (-2.0) / Z-score (-0.1) Findings are suggestive of osteopenia with a moderate fracture risk. Left Femur Total: g/cm2 (0.757) / T-score (-1.5) / Z-score (0.0) Left Femoral Neck: g/cm2 (0.706) / T-score (-1.3) / Z-score (0.5) Right Femur Total: g/cm2 (0.792) / T-score (-1.2) / Z-score (0.3) Right Femoral Neck: g/cm2 (0.746) / T-score (-0.9) / Z-score (0.9) The T-Scores on the most recent prior examination were: Lumbar Spine (L1-L4): There has been worsening of bone density since the previous examination. Left Femur Total: which represents an improvement of 3.1%. Right Femur Total: which represents a worsening of 2.7%. BD/Dexa Bone Density Study IMPRESSION: The patient is considered osteopenic as outlined below according to World Charlie Organization (WHO) criteria with a moderate fracture risk. There has been worsening of bone density since the previous examination. Reference Information: The T-score is the number of standard deviations above or below the standard which is normal for young adults at their peak bone mineral density. The World Health Organization (WHO) interprets the T-scores as follows: Above -1 Normal bone density Between -1 and -2.5 Osteopenia Equal to / or below -2.5 Osteoporosis As a practical clinical guideline, osteopenia may be graded as follows: Mild -1 through -1.5 Moderate -1.6 through -2.0 Severe -2.1 through -2.4 The Z-score is the number of standard deviations above or below age-matched controls. A Z-score of less than -1.5 would be considered abnormal. References: 1. NIH Osteoporosis and Related Bone Diseases www osteo.org 2. International Society for Clinical Densitometry www iscd.org 3. National Osteoporosis Foundation www nof.org Electronically Signed: Americo Mcallister MD at 15:35 EDT , CC: Dr. Sabino Romano MD Roof Assembler: Signed Normal [facility] Vitamin B12on 11-04-2023 Cobalamin (Vitamin B12) [Mass/Vol] 1178 pg/mL High 211-911 [facility] Comment on above: Performed By: #### L 503.0105 #### [facility] [address] [place], [place], [address] Urgent Care Visit Reporton 0 10-20-2023 Urgent Care Visit Report [facility] [address], [address] [place] [address] OFFICE VISIT Date of Service: 10/20/23 MR#: [id number] Acct: [id number] Name: SMITH JIMENEZ Rep #: [id number] : 1955 Provider: BILL Little Age/Sex: 67/F Location: [facility] Status: Signed Intake Vital Signs 05/30/23 18:39 10/20/23 11:35 Height 5 ft 1.42 in 5 ft 2 in Weight: 138 lb BMI 25.2 BP 136/80 H Blood Pressure Location Lt brachial Position Sitting Respiration 12 Pulse 78 Pulse Source Monitor Temp 98.8 F Temp Source Temporal Pulse Oximetry (%) 97 Oxygen Delivery Method room air Intake Visit Reasons: ROBERTS/ST/COUGH Allergies sulfamethoxazole [From Bactrim] Allergy (Verified 10/20/23 11:36) Rash trimethoprim [From Bactrim] Allergy (Verified 10/20/23 11:36) Rash PFSH Medical History Depression Hyperlipidemia Hypothyroid Surgical History H/O knee surgery History of colon resection Social History Smoking Status: Former smoker HPI HPI Details: SMITH JIMENEZ, is a 67 F who presents to the office today for initial evaluation at the [facility] for approximately 1-week history of progressively worsening left facial pressure/congestion with scant purulent postnasal drip/cough and left ear pressure. No complaints of fever, chills, myalgias, fatigue, runny nose, or nausea/vomiting/diarrhea. No complaints of chest pain/shortness of breath/dyspnea on exertion. No close contacts with similar complaints. No other associated symptoms and no other alleviating/aggravating factors. ROS Const Constitutional: No other (as above) Exam Const General: cooperative, healthy appearing and no acute distress Nutritional Appearance: average body habitus Orientation: alert, awake and oriented x3 HENMT Head: normal to inspection Ears: hearing grossly normal bilaterally, external ears normal, TM's normal bilaterally and EAC's normal Nose: external nose normal, nares normal, septum normal and no nasal discharge Face and sinus: normal facial exam, left maxillary sinuses tender to touch (w/ left maxillary fullness to palpation) and face symmetric Mouth: oral mucosae normal, lip normal, tongue normal and oropharynx normal Throat: posterior oropharynx normal, tonsils normal, uvula midline and postnasal drainage (scant amount Purulent) Eyes General: appearance normal, both eyes and all related structures Neck Neck: normal visual inspection, full ROM, no meningeal signs, supple and lymphadenopathy (L>R anterior cervical lymph node swelling/tender to palpation) Neck mass: No Thyroid: thyroid normal Chest Chest palpation inspection: normal inspection of the chest Resp Effort Inspection: normal respiratory effort and able to speak in complete sentences Auscultation: Bilateral: Clear to Auscultation Cardio Palpation: normal PMI Rate: regular rate Rhythm: regular rhythm Heart Sounds: S1 normal, S2 normal, no gallops, no murmurs and no rubs Pulses: radial pulses present GI Inspection: normal to inspection Skin General: no rashes or lesions noted Neuro General: patient alert, patient awake and patient oriented x3 Cognition: normal cognition Speech: speech normal Psych Appearance: grossly normal Mental Status: mental status grossly normal Mood: congruent mood Affect: normal affect Speech and Movement: speech and movement normal Attitude: cooperative Diagnoses Acute maxillary sinusitis, unspecified J01.00 Assessment and Plan Assessment and Plan (1) Acute maxillary sinusitis, unspecified: Status: Acute Plan: Amoxicillin as prescribed today. Supportive measures as instructed today. Follow-up with PCP in 3 to 5 days should symptoms not improve, sooner should symptoms worsen or any other concerns develop. Patient states acknowledging understanding all the above Coding Level of Care Code Off vis,est,level 3 Assessment and Plan Assessment and Plan Medications: New amoxicillin 500 mg PO TID 30 tabs 0RF 10/20/23 1140 Date Denzel Archer Signature: Date (if applicable) CC: Normal [facility] Absolute lymphocyte countOrd ered By: Sabino Romano on 09-16-2023 Lymphocytes Auto (Unsp spec) [#/Vol] 1.85 10*3/uL 0.83-4.51 [facility] Automated lymphocyte count a s percentage of total leukocytesOrdered By: Sabino Romano on 09-16-2023 Lymphocytes/100 WBC Auto (Unsp spec) 26.5 % 19-41 [facility] Basophil percentageOrdered B y: Sabino Romano on 09-16-2023 Basophils/100 WBC (Bld) 0.6 % 0-1 [facility] Bilirubin [Mass/Vol] 0.40 mg/dL 0.20-1.00 [facility] Comment on above: For patients on eltr ombopag therapy, use of Dimension [place] TBIL is not recommended. Chloride [Moles/Vol] 110 mmol/L 98-107 [facility] Cholesterol [Mass/Vol] 158 mg/dL <200 [facility] Comment on above: <200 mg/dL Desirable 200-240 mg/dL Borderline >240 mg/dL High Risk Eosinophils/100 WBC (Bld) 2.1 % 0-5 [facility] Glucose [Mass/Vol] 92 mg/dL 74-106 [facility] Hemoglobin (Bld) [Mass/Vol] 12.6 g/dL 12.0-15.0 [facility] Monocytes/100 WBC (Bld) 10.5 % 0-10 [facility] Neutrophils (Bld) [#/Vol] 4.2 10*3/uL 2.0-7.7 [facility] Neutrophils/100 WBC (Bld) 60.0 % 47-70 [facility] Potassium [Moles/Vol] 4.0 mmol/L 3.5-5.1 [facility] Protein [Mass/Vol] 7.2 g/dL 6.4-8.2 [facility] Sodium [Moles/Vol] 141 mmol/L 136-145 [facility] Triglyceride [Mass/Vol] 57 mg/dL <199 [facility] Comment on above: The drugs N-Acetylcy steine and Metamizole may falsely depress this assay.Serum Triglycerides Reference Interval Normal <150 mg/dL Borderline high 150 - 199 mg/dL High 200 - 499 mg/dL Very High > or = 500 mg/dL WBC (Bld) [#/Vol] 7.0 10*3/uL 4.4-11.0 [facility] CBC W/Diff, Automatedon 03-07 08-2023 Absolute Lymph 1.85 X10 3/uL Normal 0.83-4.51 [facility] Comment on above: Performed By: #### L 503.0105, L100.0100, L500.4050, L506.1000, L500.4100, L501.9520 #### [facility] [address] [place], [address] Absolute Neut 4.2 X10 3/uL Normal 2.0-7.7 [facility] Comment on above: Performed By: #### L 503.0105, L100.0100, L500.4050, L506.1000, L500.4100, L501.9520 #### [facility] [address] [place], [address] Basophils/100 WBC (Bld) 0.6 % Normal 0-1 [facility] Comment on above: Performed By: #### L 503.0105, L100.0100, L500.4050, L506.1000, L500.4100, L501.9520 #### [facility] [address] [place], [address] Eosinophils/100 WBC (Bld) 2.1 % Normal 0-5 [facility] Comment on above: Performed By: #### L 503.0105, L100.0100, L500.4050, L506.1000, L500.4100, L501.9520 #### [facility] [address] [place], [address] Erythrocyte distribution width (RBC) [Ratio] 13.2 % Normal 11.6-14.6 [facility] Comment on above: Performed By: #### L 503.0105, L100.0100, L500.4050, L506.1000, L500.4100, L501.9520 #### [facility] [address] [place], [address] Hematocrit (Bld) [Volume fraction] 40.4 % Normal 37-47 [facility] Comment on above: Performed By: #### L 503.0105, L100.0100, L500.4050, L506.1000, L500.4100, L501.9520 #### [facility] [address] [place], [address] Hemoglobin (Bld) [Mass/Vol] 12.6 g/dL Normal 12.0-15.0 [facility] Comment on above: Performed By: #### L 503.0105, L100.0100, L500.4050, L506.1000, L500.4100, L501.9520 #### [facility] [address] [facility] [place], [address] IG% 0.300 Normal 0.0-0.9 [facility] Comment on above: Result Comment: IG% - Immature Granulocytes (promyelocytes, myelocytes and metamyelocytes) > 1% indicates that a LEFT SHIFT is Present. Performed By: #### L 503.0105, L100.0100, L500.4050, L506.1000, L500.4100, L501.9520 #### [facility] [address] [place], [address] Lymphocytes/100 WBC (Bld) 26.5 % Normal 19-41 [facility] Comment on above: Performed By: #### L 503.0105, L100.0100, L500.4050, L506.1000, L500.4100, L501.9520 #### [facility] [address] [place], [address] MCH (RBC) [Entitic mass] 28.7 pg Normal 27.0-32.0 [facility] Comment on above: Performed By: #### L 503.0105, L100.0100, L500.4050, L506.1000, L500.4100, L501.9520 #### [facility] [address] [place], [address] MCHC (RBC) [Mass/Vol] 31.2 g/dL Low 32-36 [facility] Comment on above: Performed By: #### L 503.0105, L100.0100, L500.4050, L506.1000, L500.4100, L501.9520 #### [facility] [address] [place], [address] MCV (RBC) [Entitic vol] 92.0 fL Normal 81-99 [facility] Comment on above: Performed By: #### L 503.0105, L100.0100, L500.4050, L506.1000, L500.4100, L501.9520 #### [facility] [address] [place], [address] Monocytes/100 WBC (Bld) 10.5 % High 0-10 [facility] Comment on above: Performed By: #### L 503.0105, L100.0100, L500.4050, L506.1000, L500.4100, L501.9520 #### [facility] [address] [place], [address] Neutrophils/100 WBC (Bld) 60.0 % Normal 47-70 [facility] Comment on above: Performed By: #### L 503.0105, L100.0100, L500.4050, L506.1000, L500.4100, L501.9520 #### [facility] [address] [place], [address] Nucleated RBC (Bld) [#/Vol] 0 10*3/uL Normal 0-5 [facility] Comment on above: Performed By: #### L 503.0105, L100.0100, L500.4050, L506.1000, L500.4100, L501.9520 #### [facility] [address] [place], [address] Platelet mean volume (Bld) [Entitic vol] 9.3 fL Normal 6.2-12.0 [facility] Comment on above: Performed By: #### L 503.0105, L100.0100, L500.4050, L506.1000, L500.4100, L501.9520 #### [facility] [address] [place], [address] Platelets (Bld) [#/Vol] 368 10*3/uL Normal 150-450 [facility] Comment on above: Performed By: #### L 503.0105, L100.0100, L500.4050, L506.1000, L500.4100, L501.9520 #### [facility] [address] [place], [address] RBC (Bld) [#/Vol] 4.39 10*6/uL Normal 4.2-5.4 [facility] Comment on above: Performed By: #### L 503.0105, L100.0100, L500.4050, L506.1000, L500.4100, L501.9520 #### [facility] [address] [place], [address] RDW SD 44.7 fl High 35.1-43.9 [facility] Comment on above: Performed By: #### L 503.0105, L100.0100, L500.4050, L506.1000, L500.4100, L501.9520 #### [facility] [address] [place], [address] WBC (Bld) [#/Vol] 7.0 10*3/uL Normal 4.4-11.0 [facility] Comment on above: Performed By: #### L 503.0105, L100.0100, L500.4050, L506.1000, L500.4100, L501.9520 #### [facility] [address] [place], [address] Comprehensive Metabolic Prof ilon 09-16-2023 Albumin [Mass/Vol] 3.4 g/dL Normal 3.2-5.0 [facility] Comment on above: Performed By: #### L 503.0105, L100.0100, L500.4050, L506.1000, L500.4100, L501.9520 #### [facility] [address] [place], [address] Albumin/Globulin [Mass ratio] 0.9 {ratio} Normal 0.9-2.4 [facility] Comment on above: Performed By: #### L 503.0105, L100.0100, L500.4050, L506.1000, L500.4100, L501.9520 #### [facility] [address] [place], [address] ALK P 85 U/L Normal 45-117 [facility] Comment on above: Performed By: #### L 503.0105, L100.0100, L500.4050, L506.1000, L500.4100, L501.9520 #### [facility] [address] [place], [address] ALT [Catalytic activity/Vol] 24 U/L Normal 13-56 [facility] Comment on above: Performed By: #### L 503.0105, L100.0100, L500.4050, L506.1000, L500.4100, L501.9520 #### [facility] [address] [place], [address] AST [Catalytic activity/Vol] 25 U/L Normal 15-37 [facility] Comment on above: Performed By: #### L 503.0105, L100.0100, L500.4050, L506.1000, L500.4100, L501.9520 #### [facility] [address] [place], [address] Bilirubin [Mass/Vol] 0.40 mg/dL Normal 0.20-1.00 [facility] Comment on above: Result Comment: For patients on eltrombopag therapy, use of Dimension [place] TBIL is not recommended. Performed By: #### L 503.0105, L100.0100, L500.4050, L506.1000, L500.4100, L501.9520 #### [facility] [address] [place], [address] BUN/CRE 21.8 RATIO High 10-20 [facility] Comment on above: Performed By: #### L 503.0105, L100.0100, L500.4050, L506.1000, L500.4100, L501.9520 #### [facility] [address] [place], [address] CA,Total 8.4 mg/dL Low 8.5-10.1 [facility] Comment on above: Performed By: #### L 503.0105, L100.0100, L500.4050, L506.1000, L500.4100, L501.9520 #### [facility] [address] [place], [address] Chloride [Moles/Vol] 110 mmol/L High 98-107 [facility] Comment on above: Performed By: #### L 503.0105, L100.0100, L500.4050, L506.1000, L500.4100, L501.9520 #### [facility] [address] [place], [address] CO2 [Moles/Vol] 26.0 mmol/L Normal 21.0-32.0 [facility] Comment on above: Performed By: #### L 503.0105, L100.0100, L500.4050, L506.1000, L500.4100, L501.9520 #### [facility] [address] [place], [address] Creatinine [Mass/Vol] 0.73 mg/dL Normal 0.55-1.02 [facility] Comment on above: Result Comment: The validity of the calculated GFR GFRAA in patients over 70 years has not been determined. Clinical correlation is essential. Performed By: #### L 503.0105, L100.0100, L500.4050, L506.1000, L500.4100, L501.9520 #### [facility] [address] [place], [address] EST GFR - AA 101 mL/min Normal >60 [facility] Comment on above: Result Comment: Afri can [place]ian GFR Calc Performed By: #### L 503.0105, L100.0100, L500.4050, L506.1000, L500.4100, L501.9520 #### [facility] [address] [place], [address] GAP 5 Normal 5-15 [facility] Comment on above: Performed By: #### L 503.0105, L100.0100, L500.4050, L506.1000, L500.4100, L501.9520 #### [facility] [address] [place], [address] GFR/1.73 sq M.predicted among non-blacks MDRD (S/P/Bld) [Vol rate/Area] 83 mL/min/{1.73_m2} Normal >60 [facility] Comment on above: Result Comment: Non- GFR Calc Performed By: #### L 503.0105, L100.0100, L500.4050, L506.1000, L500.4100, L501.9520 #### [facility] [address] [place], [address] Globulin (S) [Mass/Vol] 3.8 g/dL Normal 2.2-4.2 [facility] Comment on above: Performed By: #### L 503.0105, L100.0100, L500.4050, L506.1000, L500.4100, L501.9520 #### [facility] [address] [place], [address] Glucose [Mass/Vol] 92 mg/dL Normal 74-106 [facility] Comment on above: Performed By: #### L 503.0105, L100.0100, L500.4050, L506.1000, L500.4100, L501.9520 #### [facility] [address] [place], [address] Potassium [Moles/Vol] 4.0 mmol/L Normal 3.5-5.1 [facility] Comment on above: Performed By: #### L 503.0105, L100.0100, L500.4050, L506.1000, L500.4100, L501.9520 #### [facility] [address] [place], [address] Sodium [Moles/Vol] 141 mmol/L Normal 136-145 [facility] Comment on above: Performed By: #### L 503.0105, L100.0100, L500.4050, L506.1000, L500.4100, L501.9520 #### [facility] [address] [place], [address] T PROT 7.2 g/dL Normal 6.4-8.2 [facility] Comment on above: Performed By: #### L 503.0105, L100.0100, L500.4050, L506.1000, L500.4100, L501.9520 #### [facility] [address] [place], [address] Urea nitrogen [Mass/Vol] 16 mg/dL Normal 7-18 [facility] Comment on above: Performed By: #### L 503.0105, L100.0100, L500.4050, L506.1000, L500.4100, L501.9520 #### [facility] [address] [place], [address] Determination of erythrocyte mean corpuscular volume (MCV)Ordered By: [facility] on 09-16-2023 MCV (RBC) [Entitic vol] 92.0 fL 81-99 [facility] Erythrocyte distribution wid th ratioOrdered By: [facility] on 09-16-2023 Erythrocyte distribution width (RBC) [Ratio] 13.2 % 11.6-14.6 [facility] Erythrocyte distribution wid th standard deviationOrdered By: [facility] on 09-16-2023 Erythrocyte distribution width (RBC) [Entitic vol] 44.7 fL 35.1-43.9 [facility] Hematocrit Auto (Bld) [Volum e fraction]Ordered By: [facility] on 09-16-2023 Hematocrit (Bld) [Volume fraction] 40.4 % 37-47 [facility] Immature granulocytes/100 WB C Auto (Bld)Ordered By: [facility] on 09-16-2023 Immature granulocytes/100 WBC (Bld) 0.300 % 0.0-0.9 [facility] Comment on above: IG% - Immature Granu locytes (promyelocytes, myelocytes and metamyelocytes) > 1% indicates that a LEFT SHIFT is Present. Laboratory - Chemistry and C hemistry - challengeOrdered By: [facility] on 09-16-2023 Albumin/Globulin [Mass ratio] 0.9 {ratio} 0.9-2.4 [facility] ALP [Catalytic activity/Vol] 85 U/L 45-117 [facility] ALT [Catalytic activity/Vol] 24 U/L 13-56 [facility] Cholesterol in HDL [Mass/Vol] 66 mg/dL >40 [facility] Comment on above: The drugs N-Acetylcy steine and Metamizole may falsely depress this assay. Reference Range HDL <40 mg/dL Low HDL Cholesterol HDL >or= 60 mg/dL High HDL Cholesterol Cholesterol in LDL [Mass/Vol] 81 mg/dL 0-130 [facility] CO2 [Moles/Vol] 26.0 mmol/L 21.0-32.0 [facility] Cobalamin (Vitamin B12) [Mass/Vol] 237 pg/mL 211-911 [facility] Globulin (S) [Mass/Vol] 3.8 g/dL 2.2-4.2 [facility] Urea nitrogen/Creatinine [Mass ratio] 21.8 mg/mg 10-20 [facility] - Hematology and Cell countsOrdered By: Sabino Romano on 09-16-2023 MCH (RBC) [Entitic mass] 28.7 pg 27.0-32.0 [facility] MCHC (RBC) [Mass/Vol] 31.2 g/dL 32-36 [facility] Nucleated RBC/100 WBC (Bld) [Ratio] 0 % 0-5 [facility] Platelet mean volume (Bld) [Entitic vol] 9.3 fL 6.2-12.0 [facility] Platelets (Bld) [#/Vol] 368 10*3/uL 150-450 [facility] Lipid Profileon 09-16-2023 Cholesterol [Mass/Vol] 158 mg/dL Normal 200 [facility] Comment on above: Result Comment: <200 mg/dL Desirable 200-240 mg/dL Borderline >240 mg/dL High Risk Performed By: #### L 503.0105, L100.0100, L500.4050, L506.1000, L500.4100, L501.9520 #### [facility] [address] [place], [place], [id number] ([phone]) Cholesterol in HDL [Mass/Vol] 66 mg/dL Normal [facility] Comment on above: Result Comment: The drugs N-Acetylcysteine and Metamizole may falsely depress this assay. Reference Range HDL <40 mg/dL Low HDL Cholesterol HDL >or= 60 mg/dL High HDL Cholesterol Performed By: #### L 503.0105, L100.0100, L500.4050, L506.1000, L500.4100, L501.9520 #### [facility] [address] [place], [address] Cholesterol in LDL [Mass/Vol] 81 mg/dL Normal 0-130 [facility] Comment on above: Performed By: #### L 503.0105, L100.0100, L500.4050, L506.1000, L500.4100, L501.9520 #### [facility] [address] [place], [address] Cholesterol in VLDL [Mass/Vol] 11 mg/dL Normal 5-40 [facility] Comment on above: Performed By: #### L 503.0105, L100.0100, L500.4050, L506.1000, L500.4100, L501.9520 #### [facility] [address] [place], [address] Triglyceride [Mass/Vol] 57 mg/dL Normal [facility] Comment on above: Result Comment: The drugs N-Acetylcysteine and Metamizole may falsely depress this assay. Serum Triglycerides Reference Interval Normal <150 mg/dL Borderline high 150 - 199 mg/dL High 200 - 499 mg/dL Very High > or = 500 mg/dL Performed By: #### L 503.0105, L100.0100, L500.4050, L506.1000, L500.4100, L501.9520 #### [facility] [address] [place], [address] No Panel InformationOrdered By: Sabino Romano on 09-16-2023 Estimated GFR (MDRD) Amer 101 mL/min >60 [facility] Comment on above: GFR Calc Estimated GFR (MDRD) Non-Af Amer 83 mL/min >60 [facility] Comment on above: Non- GFR Calc Vitamin D 25-Hydroxy 37.3 ng/mL [facility] Comment on above: Vitamin D 25(OH) Sta tus Range Deficiency <20 ng/mL (50nmol/L) Insufficiency 20 - 30 ng/mL (50 - 75 nmol/L) Sufficiency 30 - 100 ng/mL (75 - 250 nmol/L) Toxicity >100 ng/mL (>250 nmol/L) VLDL Cholesterol 11 mg/dL 5-40 [facility] RBC Auto (Bld) [#/Vol]Ordere d By: Jamiablake Romano on 09-16-2023 RBC (Bld) [#/Vol] 4.39 10*6/uL 4.2-5.4 [facility] Serum or plasma calcium emily urement (mass/volume)[facility] on 09-16-2023 Calcium [Mass/Vol] 8.4 mg/dL 8.5-10.1 [facility] Serum or plasma creatinine m easurement (mass/volume)Ordered By: [facility] on 09-16-2023 Creatinine [Mass/Vol] 0.73 mg/dL 0.55-1.02 [facility] Comment on above: The validity of the calculated GFR & GFRAA in patients over 70 years has not been determined. Clinical correlation is essential. Serum or plasma thyroid stim ulating hormone (TSH) measurement (units/volume)Ordered By: [facility] on 09-16-2023 TSH Qn 2.82 uIU/mL 0.358-3.74 [facility] Serum or plasma urea nitroge n measurement (mass/volume)Ordered By: [facility] on 09-16-2023 Urea nitrogen [Mass/Vol] 16 mg/dL 7-18 [facility] Thin prep Papanicolaou smear with manual screeningOrdered By: [facility] on 09-16-2023 Thin prep Papanicolaou smear with manual screening 3.4 g/dL 3.2-5.0 [facility] Thin prep Papanicolaou smear with manual screening 25 U/L 15-37 [facility] Thin prep Papanicolaou smear with manual screening 5 5-15 [facility] Thyroid Stim Hormone (TSH)on 09-16-2023 TSH 2.82 uIU/mL Normal 0.358-3.74 [facility] Comment on above: Performed By: #### L 503.0105, L100.0100, L500.4050, L506.1000, L500.4100, L501.9520 #### [facility] [place], [address] Vitamin B12on 09-16-2023 Cobalamin (Vitamin B12) [Mass/Vol] 237 pg/mL Normal 211-911 [facility] Comment on above: Performed By: #### L 503.0105, L100.0100, L500.4050, L506.1000, L500.4100, L501.9520 #### [facility] [address] [place], [place], [id number] Vitamin D,25 Hydroxyon 09-15 Vitamin D 25-OH 37.3 ng/mL Normal [facility] Comment on above: Result Comment: Dilcia min D 25(OH) Status Range Deficiency <20 ng/mL (50nmol/L) Insufficiency 20 - 30 ng/mL (50 - 75 nmol/L) Sufficiency 30 - 100 ng/mL (75 - 250 nmol/L) Toxicity >100 ng/mL (>250 nmol/L) Performed By: #### L 503.0105, L100.0100, L500.4050, L506.1000, L500.4100, L501.9520 #### [facility] [address] [place], [place], [id number] Absolute lymphocyte counton 09-15-2021 Lymphocytes Auto (Unsp spec) [#/Vol] 2.13 10*3/uL 0.83-4.51 [facility] Work Phone: Basophil percentageon 2021 Basophils/100 WBC (Bld) 0.4 % 0-1 [facility] Work Phone: Bilirubin [Mass/Vol] 0.50 mg/dL 0.20-1.00 [facility] Work Phone: Comment on above: For patients on eltr ombopag therapy, use of Dimension [place] TBIL is not recommended. Chloride [Moles/Vol] 111 mmol/L 98-107 [facility] Work Phone: Cholesterol [Mass/Vol] 154 mg/dL <200 [facility] Work Phone: Comment on above: <200 mg/dL Desirable 200-240 mg/dL Borderline >240 mg/dL High Risk Eosinophils/100 WBC (Bld) 2.0 % 0-5 [facility] Work Phone: Glucose [Mass/Vol] 98 mg/dL 74-106 [facility] Work Phone: Neutrophils (Bld) [#/Vol] 5.0 10*3/uL 2.0-7.7 [facility] Work Phone: Neutrophils/100 WBC (Bld) 61.9 % 47-70 [facility] Work Phone: [phone] Potassium [Moles/Vol] 4.4 mmol/L 3.5-5.1 [facility] Work Phone: Protein [Mass/Vol] 7.1 g/dL 6.4-8.2 [facility] Work Phone: Sodium [Moles/Vol] 141 mmol/L 136-145 [facility] Work Phone: Triglyceride [Mass/Vol] 104 mg/dL [facility] Work Phone: Comment on above: The drugs N-Acetylcy steine and Metamizole may falsely depress this assay.Serum Triglycerides Reference Interval Normal <150 mg/dL Borderline high 150 - 199 mg/dL High 200 - 499 mg/dL Very High > or = 500 mg/dL WBC (Bld) [#/Vol] 8.1 10*3/uL 4.4-11.0 [facility] Work Phone: Blood erythrocytes count (nu mber/volume)on 09-15-2021 RBC (Bld) [#/Vol] 4.68 10*6/uL 4.2-5.4 [facility] Work Phone: Blood hemoglobin measurement (mass/volume)on 09-15-2021 Hemoglobin (Bld) [Mass/Vol] 13.8 g/dL 12.0-15.0 [facility] Work Phone: Blood lymphocytes/100 leukoc yteson 09-15-2021 Lymphocytes/100 WBC (Bld) 26.2 % 19-41 [facility] Work Phone: Blood monocytes/100 leukocyt eson 09-15-2021 Monocytes/100 WBC (Bld) 9.0 % 0-10 [facility] Work Phone: Blood platelet mean volumeon 09-15-2021 Platelet mean volume (Bld) [Entitic vol] 8.6 fL 6.2-12.0 [facility] Work Phone: Determination of erythrocyte mean corpuscular volume (MCV)on 09-15-2021 MCV (RBC) [Entitic vol] 90.6 fL 81-99 [facility] Work Phone: Hematocrit Auto (Bld) [Volum e fraction]on 09-15-2021 Hematocrit (Bld) [Volume fraction] 42.4 % 37-47 [facility] Work Phone: Laboratory - Chemistry and C hemistry - challengeon 09-15-2021 ALP [Catalytic activity/Vol] 106 U/L 45-117 [facility] Work Phone: ALT [Catalytic activity/Vol] 22 U/L 13-56 [facility] Work Phone: CO2 [Moles/Vol] 28.0 mmol/L 21.0-32.0 [facility] Work Phone: Free T4 [Mass/Vol] 1.01 ng/dL 0.76-1.46 [facility] Work Phone: Globulin (S) [Mass/Vol] 3.6 g/dL 2.2-4.2 [facility] Work Phone: Urea nitrogen/Creatinine [Mass ratio] 14.5 mg/mg 10-20 [facility] Work Phone: Laboratory - Hematology and Cell countson 09-15-2021 Erythrocyte distribution width (RBC) [Entitic vol] 42.8 fL 35.1-43.9 [facility] Work Phone: Erythrocyte distribution width (RBC) [Ratio] 13.0 % 11.6-14.6 [facility] Work Phone: Immature granulocytes/100 WBC (Bld) 0.500 % 0.0-0.9 [facility] Work Phone: Comment on above: IG% - Immature Granu locytes (promyelocytes, myelocytes and metamyelocytes) > 1% indicates that a LEFT SHIFT is Present. MCH (RBC) [Entitic mass] 29.5 pg 27.0-32.0 [facility] Work Phone: Nucleated RBC/100 WBC (Bld) [Ratio] 0 % 0-5 [facility] Work Phone: MCHC Auto (RBC) [Mass/Vol]on 09-15-2021 MCHC (RBC) [Mass/Vol] 32.5 g/dL 32-36 [facility] Work Phone: No Panel Informationon 09-15 Estimated GFR (MDRD) Amer 88 mL/min >60 [facility] Work Phone: Comment on above: GFR Calc Estimated GFR (MDRD) Non-Af Amer 73 mL/min >60 [facility] Work Phone: Comment on above: Non- GFR Calc Thyroid Stimulating Hormone (TSH) 1.08 uIU/mL 0.358-3.74 [facility] Work Phone: Vitamin D 25-Hydroxy 60.8 ng/mL [facility] Work Phone: Comment on above: Vitamin D 25(OH) Sta tus Range Deficiency <20 ng/mL (50nmol/L) Insufficiency 20 - 30 ng/mL (50 - 75 nmol/L) Sufficiency 30 - 100 ng/mL (75 - 250 nmol/L) Toxicity >100 ng/mL (>250 nmol/L) Platelets bldon 09-15-2021 Platelets (Bld) [#/Vol] 381 10*3/uL 150-450 [facility] Work Phone: Serum or plasma albumin emily urement (mass/volume)on 09-15-2021 Albumin [Mass/Vol] 3.5 g/dL 3.2-5.0 [facility] Work Phone: Serum or plasma albumin/glob ulin mass ratioon 09-15-2021 Albumin/Globulin [Mass ratio] 1.0 {ratio} 0.9-2.4 [facility] Work Phone: Serum or plasma calcium emily urement (mass/volume)on 09-15-2021 Calcium [Mass/Vol] 9.0 mg/dL 8.5-10.1 [facility] Work Phone: Serum or plasma cholesterol in HDL measurement (mass/volume)on 09-15-2021 Cholesterol in HDL [Mass/Vol] 51 mg/dL [facility] Work Phone: Comment on above: The drugs N-Acetylcy steine and Metamizole may falsely depress this assay. Reference Range HDL <40 mg/dL Low HDL Cholesterol HDL >or= 60 mg/dL High HDL Cholesterol Serum or plasma cholesterol in VLDL measurement (mass/volume)on 09-15-2021 Cholesterol in VLDL [Mass/Vol] 21 mg/dL 5-40 [facility] Work Phone: Serum or plasma creatinine m easurement (mass/volume)on 09-15-2021 Creatinine [Mass/Vol] 0.83 mg/dL 0.55-1.02 [facility] Work Phone: Comment on above: The validity of the calculated GFR & GFRAA in patients over 70 years has not been determined. Clinical correlation is essential. Serum or plasma low density lipoprotein (LDL) cholesterol measurement (mass/volume)on 09-15-2021 Cholesterol in LDL [Mass/Vol] 82 mg/dL 0-130 [facility] Work Phone: Serum or plasma urea nitroge n measurement (mass/volume)on 09-15-2021 Urea nitrogen [Mass/Vol] 12 mg/dL 7-18 [facility] Work Phone: Thin prep Papanicolaou smear with manual screeningon 09-15-2021 Thin prep Papanicolaou smear with manual screening 17 U/L 15-37 [facility] Work Phone: Thin prep Papanicolaou smear with manual screening 2 5-15 [facility] Work Phone: No Panel Informationon 08-05 POC SARS CoV-2 Antigen Negative [facility] Work Phone: No Panel Informationon 07-29 POC SARS CoV-2 Antigen Negative [facility] Work Phone: No Panel Informationon 06-06 Vitamin D 25-Hydroxy 57.2 ng/mL [facility] Work Phone: Comment on above: Vitamin D 25(OH) Sta tus Range Deficiency <20 ng/mL (50nmol/L) Insufficiency 20 - 30 ng/mL (50 - 75 nmol/L) Sufficiency 30 - 100 ng/mL (75 - 250 nmol/L) Toxicity >100 ng/mL (>250 nmol/L) 25-Hydroxy D2+D3on 0 25-Hydroxy D Total 27.4 ng/mL Low 30.0-100.0 [facility] Comment on above: Performed By: #### D 2D3 #### [facility] [address] [place], [place] [address] 25-Hydroxy D2 16.5 ng/mL Normal [facility] Comment on above: Performed By: #### D 2D3 #### [facility] [address], [place] [address] 25-Hydroxy D3 10.9 ng/mL Normal [facility] Comment on above: Performed By: #### D 2D3 #### [facility] [address], [place] [address] 25-Hydroxy D2+D3on 9 25-Hydroxy D Total 46.6 ng/mL Normal 30.0-100.0 [facility] Comment on above: Performed By: #### D 2D3 #### [facility] [address], [place] [address] 25-Hydroxy D2 36.7 ng/mL Normal [facility] Comment on above: Performed By: #### D 2D3 #### [facility] [address], [place] [address] 25-Hydroxy D3 9.9 ng/mL Normal [facility] Comment on above: Performed By: #### D 2D3 #### [facility] [address] [place], [place] [address] MAMMO BILATERAL SCREENING KIESHA Alise 01-15-2018 MAMMO BILATERAL SCREENING DIGITAL EXAMINATION:Screening mammograms.01/09/2018TECHNIQUE :Standard digital mammographic views of both breast(s) are submitted forinterpretation. CAD was applied.COMPARISON: 6. 12/29/2013.HISTORY:Screening .FINDINGS:BREAST COMPOSITION: The breast parenchyma is heterogeneously dense(c) whichmay obscure small masses.There are no new suspicious abnormal masses, aggressive calcifications orarchitectural distortion. There is a biopsy clip in the lateral right breast.IMPRESSION:No significant interval change.BIRADS:BIRADS - CATEGORY 2 - Benign finding(s).The [place] [employer] and the Society of Breast Imagingrecommends women receive annual mammograms starting at age 40.The [place] [employer] Society's guidelines for women at AVERAGE RISK for breastcancer include:Women ages 40 to 44 should have a choice to start annual breast cancerscreening with mammograms if they wish to do so. The risks of screening aswell as the potential benefits should be considered. Women age 45 to 54should get a mammogram every year. Women age 55 and older should switch tomammograms every 2 years, or have the choice to continue yearly screening.Women with a personal history of breast cancer, a family history of breastcancer, a genetic mutation known to increase risk of breast cancer (such asBRCA), and women who had radiation therapy to the chest before the age of 30are at higher risk for breast cancer, not average risk and additionalscreening may be indicated.The above report was generated using voice recognition software. It maycontain grammatical, syntax and spelling errors. Normal [facility] 25-OH VITAMIN Don 01-09-2018 25-OH VITAMIN D 34.6 ng/mL Normal [facility] Comment on above: Result Comment: Oralia pulido Range: Deficiency: <20 ng/mL Insufficiency: 21-29 ng/mL Optimal Level: >=30 ng/mL Possible Toxicity: >80 ng/mL-80 ng/mL is the lowest reported level associated withtoxicity in patients without primary hyperthyroidism whohave normal renal function. Performed By: #### 4 [id number] ####[facility] [address] [phone] CBC WITH DIFFERENTIALon 07-0 6-2018 ABSOLUTE MONO 0.5 10 3/uL Normal 0.2-0.6 [facility] [employer] Comment on above: Performed By: #### 4 [id number] ####[facility] [address] [phone] ABSOLUTE NEUT 3.4 10 3/uL Normal 2.4-6.6 [facility] [employer] Comment on above: Performed By: #### 4 [id number] ####[facility] [address] [phone] Basophils Auto #/vol (Bld) 0.0 10 3/uL Normal 0.0-0.1 [facility] [employer] [facility] [employer] Comment on above: Performed By: #### 4 [id number] ####[facility] [address] [phone] Basophils/100 WBC Auto (Bld) 0.3 % Normal [facility] Comment on above: Performed By: #### 4 [id number] ####[facility] [address] [phone] Eosinophils 0.1 10 3/uL Normal 0.1-0.3 [facility] [employer] Comment on above: Performed By: #### 4 [id number] ####[facility] [facility] [employer] [facility] [address] [phone] Eosinophils/100 leukocytes 2.4 % Normal [facility] Comment on above: Performed By: #### 4 [id number] ####[facility] [address] [phone] Erythrocyte distribution width Auto Ratio (RBC) 13.4 % Normal 11.5-14.5 [facility] Comment on above: Performed By: #### 4 [id number] ####[facility] [address] [phone] Erythrocytes (RBC) 4.68 x10 6/uL Normal 3.60-5.20 [facility] Comment on above: Performed By: #### 4 [id number] ####[facility] [address] [phone] Hematocrit (HCT) 43.2 % Normal 33.6-46.8 [facility] Comment on above: Performed By: #### 4 [id number] ####[address] [phone] Hemoglobin mass conc (Bld) 13.4 g/dL Normal 11.7-15.8 [facility] Comment on above: Performed By: #### 4 [id number] ####[address] [phone] Lymphocytes 1.7 10 3/uL Normal 1.2-3.3 [facility] Comment on above: Performed By: #### 4 [id number] ####[address] [phone] Lymphocytes/100 leukocytes 30.2 % Normal [facility] Comment on above: Performed By: #### 4 [id number] ####[address] [phone] MCH 28.6 pg Normal 27.5-32.3 [facility] Comment on above: Performed By: #### 4 [id number] ####[address] [phone] MCHC mass conc (RBC) 31.0 g/dL Normal 30.7-35.5 [facility] Comment on above: Performed By: #### 4 [id number] ####[address] [phone] MCV 92.3 fL Normal 80.2-99.0 [facility] Comment on above: Performed By: #### 4 [id number] ####[facility] [address] [phone] Monocytes/100 leukocytes 8.1 % Normal [facility] Comment on above: Performed By: #### 4 [id number] ####[facility] [facility] [employer] [facility] [address] [phone] Neutrophils/100 leukocytes 59.0 % Normal [facility] Comment on above: Performed By: #### 4 [id number] ####[facility] [address] [phone] Platelets 352.0 x10 3/uL Normal 150.0-400.0 [facility] Comment on above: Performed By: #### 4 [id number] ####[facility] [address] [phone] WBC (Leukocytes) 5.8 x10 3/uL Normal 4.3-10.3 [facility] Comment on above: Performed By: #### 4 [id number] ####[facility] [employer] [address] [phone] GFRon 01-09-2018 eGFR (MDRD) mL/min/{1.73_m2} Normal [facility] Comment on above: Result Comment: To e stimate the GFR for Americans, multiply the resultprovided by 1.21. Population mean GFR = 85 ml/min/1.73 sq.m. for ages 60-69 yrsFive stages of CKD and GFR for each stage:Stage 1 GFR >=90Stage 2 GFR 60-89Stage 3 GFR 30-59Stage 4 GFR 15-29Stage 5 GFR <15 Performed By: #### G FR1 ####[address] [phone] LIPID PROFILEon 01-09-2018 HDL Cholesterol 52.0 mg/dL Normal 40.0-59.9 [facility] Comment on above: Result Comment: Inte rpretive data for HDL Cholesterol states: HDL <40 mg/dL is low and constitutes a coronary disease risk factor. HDL >60 mg/dL is a negative risk factor for coronary heart disease.. Performed By: #### 4 [id number] ####[address] [phone] LDL Cholesterol 176 mg/dL High 0-100 [facility] Comment on above: Result Comment: LDL REFERENCE RANGE Optimal <100 mg/dl Near Optimal 100-129 mg/dL Borderline High 130-159 mg/dL High 160-189 mg/dL Very High >=190 mg/dL. Performed By: #### 4 [id number] ####[address] [phone] Triglyceride 92 mg/dL Normal 0-150 [facility] Comment on above: Result Comment: TRIG LYCERIDE REFERENCE RANGE Normal <150 mg/dL Borderline High 150-199 mg/dL High 200-499 mg/dL Very High >=500 mg/dL. Performed By: #### 4 [id number] ####[address] [phone] VLDL-CALCULATED 18 mg/dL Normal <42 [facility] Comment on above: Performed By: #### 4 [id number] ####[address] [phone] Cholesterol 246 mg/dL High 0-200 [facility] Comment on above: Result Comment: CHOL ESTEROL REFERENCE RANGE Desirable <200 mg/dL Borderline 200-239 mg/dL High >240 mg/dL. Performed By: #### 4 [id number] ####[address] [phone] METABOLIC PANELon 01-09-2018 Alanine aminotransferase (ALT) 25 U/L Normal 9-52 [facility] Comment on above: Performed By: #### 4 [id number] ####[address] [phone] Calcium 9.3 mg/dL Normal 8.4-10.4 [facility] Comment on above: Performed By: #### 4 [id number] ####[address] [phone] ALK PHOS 84 U/L Normal 24-126 [facility] Comment on above: Performed By: #### 4 [id number] ####[facility] [place] [phone] Aspartate aminotransferase (AST) 21 U/L Normal 3-47 [facility] Comment on above: Performed By: #### 4 [id number] ####[address] [phone] Bilirubin Ql (U) 0.5 mg/dL Normal 0.2-1.6 [facility] Comment on above: Performed By: #### 4 [id number] ####[place] [phone] CO2 28 mmol/L Normal 22-30 [facility] Comment on above: Performed By: #### 4 [id number] ####[address] [phone] Creatinine 0.70 mg/dL Normal 0.52-1.04 [facility] Comment on above: Performed By: #### 4 [id number] ####[address] [phone] Glucose mass conc 85 mg/dL Normal 65-100 [facility] Comment on above: Performed By: #### 4 [id number] ####[address] [phone] Protein 7.5 g/dL Normal 6.3-8.2 [facility] Comment on above: Performed By: #### 4 [id number] ####[facility] [facility] [employer] [address] [phone] Urea nitrogen 15 mg/dL Normal 8-20 [facility] Comment on above: Performed By: #### 4 [id number] ####[facility] [address] [phone] Potassium molar conc 4.3 mmol/L Normal 3.6-5.1 [facility] Comment on above: Performed By: #### 4 [id number] ####[place] [phone] Sodium 144 mmol/L Normal 135-147 [facility] Comment on above: Performed By: #### 4 [id number] ####[place] [phone] Albumin 4.3 g/dL Normal 3.5-5.0 [facility] Comment on above: Performed By: #### 4 [id number] ####[place] [phone] Chloride 106 mmol/L Normal 96-109 [facility] Comment on above: Performed By: #### 4 [id number] ####[address] [phone] TSHon 01-09-2018 Thyroid stimulating hormone (TSH) 0.517 uIU/mL Normal 0.465-4.680 [facility] Comment on above: Performed By: #### 4 [id number] ####[address] [phone] .Auto Diffon 06-06-2017 Basophils Auto #/vol (Bld) 0.00 10 3/mcL Normal 0.00-0.19 [facility] ([place] Comment on above: Performed By: #### C BC, ADIFF, ANEU, BMP, GFR ####[address] [phone] Basophils/100 WBC Auto (Bld) 0.5 % Normal 0.0-2.5 [facility] ([place] Comment on above: Performed By: #### C BC, ADIFF, ANEU, BMP, GFR ####[facility] [place] [address] Eosinophils 0.30 10 3/mcL Normal 0.00-0.40 [facility] ([place] Comment on above: Performed By: #### C BC, ADIFF, ANEU, BMP, GFR ####[address] [address] Eosinophils/100 leukocytes 3.5 % Normal 0.0-7.0 [facility] ([place] Comment on above: Performed By: #### C BC, ADIFF, ANEU, BMP, GFR ####[address] [phone] Lymphocytes 2.60 10 3/mcL Normal 0.77-3.85 [facility] ([place]) Comment on above: Performed By: #### C BC, ADIFF, ANEU, BMP, GFR ####[address] [address] Lymphocytes/100 leukocytes 32.0 % Normal 10.0-50.0 [facility] ([place] Comment on above: Performed By: #### C BC, ADIFF, ANEU, BMP, GFR ####[address] [address] Monocytes 0.70 10 3/mcL Normal 0.15-1.00 [facility] [facility] [place] Comment on above: Performed By: #### C BC, ADIFF, ANEU, BMP, GFR ####[address] [address] Monocytes/100 leukocytes 8.6 % Normal 1.7-13.0 [facility] ([place]) Comment on above: Performed By: #### C BC, ADIFF, ANEU, BMP, GFR ####[address] [address] Neutrophils/100 WBC Auto (Bld) 55.4 % Normal 37.0-80.0 [facility] ([place]) Comment on above: Performed By: #### C BC, ADIFF, ANEU, BMP, GFR ####[address] [address] .GFRon 06-06-2017 eGFR (non-black) mL/min/{1.73_m2} Normal [facility] ([place]) Comment on above: Result Comment: GFR Population mean for , Non- Americans Ages 20-29 = 116 mL/min/1.73 sq.m. Ages 30-39 = 107 mL/min/1.73 sq.m. Ages 40-49 = 99 mL/min/1.73 sq.m. Ages 50-59 = 93 mL/min/1.73 sq.m. Ages 60-69 = 85 mL/min/1.73 sq.m. Ages 70+ = 75 mL/min/1.73 sq.m.Chronic Kidney Disease: Less than 60 mL/min/1.73 square metersEnd Stage Renal Disease: Less than 15 mL/min/1.73 square meters Performed By: #### C BC, ADIFF, ANEU, BMP, GFR ####[address] [address] eGFR (non-black) 106 ml/min/1.73sqm Normal [facility] ([place]) Comment on above: Result Comment: GFR Population mean for , Non- Americans Ages 20-29 = 116 mL/min/1.73 sq.m. Ages 30-39 = 107 mL/min/1.73 sq.m. Ages 40-49 = 99 mL/min/1.73 sq.m. Ages 50-59 = 93 mL/min/1.73 sq.m. Ages 60-69 = 85 mL/min/1.73 sq.m. Ages 70+ = 75 mL/min/1.73 sq.m.Chronic Kidney Disease: Less than 60 mL/min/1.73 square metersEnd Stage Renal Disease: Less than 15 mL/min/1.73 square meters Performed By: #### C BC, ADIFF, ANEU, BMP, GFR ####[place] [address] .NEUABSon 06-06-2017 Neutrophils 4.60 10 3/mcL Normal 2.85-6.16 [facility] ([place]) Comment on above: Performed By: #### C BC, ADIFF, ANEU, BMP, GFR ####[address] [address] CBCon 06-06-2017 Erythrocyte distribution width Auto Ratio (RBC) 13.3 % Normal 11.5-14.5 [facility] ([place]) Comment on above: Performed By: #### C BC, ADIFF, ANEU, BMP, GFR ####[place] [address] Erythrocytes (RBC) 4.65 10 6/mcL Normal 4.20-5.40 [facility] ([place]) Comment on above: Performed By: #### C BC, ADIFF, ANEU, BMP, GFR ####[place] [address] Hematocrit (HCT) 40.6 % Normal 37.0-47.0 [facility] ([place]) Comment on above: Performed By: #### C BC, ADIFF, ANEU, BMP, GFR ####[place] [address] Hemoglobin mass conc (Bld) 13.2 G/dL Normal 12.0-16.0 [facility] ([place]) Comment on above: Performed By: #### C BC, ADIFF, ANEU, BMP, GFR ####[place] [address] MCH 28.3 pg Normal 27.0-31.2 [facility] ([place]) Comment on above: Performed By: #### C BC, ADIFF, ANEU, BMP, GFR ####[place] [address] MCHC mass conc (RBC) 32.4 G/dL Low 33.0-37.0 [facility] ([place]) Comment on above: Performed By: #### C BC, ADIFF, ANEU, BMP, GFR ####[place] [address] MCV 87.3 fL Normal 80.0-94.0 [facility] ([place]) Comment on above: Performed By: #### C BC, ADIFF, ANEU, BMP, GFR ####[place] [address] Platelet mean volume (PMV) 7.4 fL Normal 7.4-10.4 [facility] ([place]) Comment on above: Performed By: #### C BC, ADIFF, ANEU, BMP, GFR ####[place] [address] Platelets 340 10 3/mcL Normal 130-400 [facility] ([place]) Comment on above: Performed By: #### C BC, ADIFF, ANEU, BMP, GFR ####[place] [address] WBC (Leukocytes) 8.30 10 3/mcL Normal 4.60-10.80 [facility] ([place]) Comment on above: Performed By: #### C BC, ADIFF, ANEU, BMP, GFR ####[place] [address] CMPon 06-06-2017 Alanine aminotransferase (ALT) 11 U/L Normal 10-35 [facility] ([place]) Comment on above: Performed By: #### C BC, ADIFF, ANEU, BMP, GFR ####[place] [address] Albumin 4.5 G/dL Normal 3.4-4.8 [facility] ([place]) Comment on above: Performed By: #### C BC, ADIFF, ANEU, BMP, GFR ####[place] [address] Albumin/Globulin Ratio 1.8 {ratio} Normal 1.1-2.5 [facility] ([place]) Comment on above: Performed By: #### C BC, ADIFF, ANEU, BMP, GFR ####[place] [address] Alk Phos 97 IU/L Normal 40-135 [facility] ([place]) Comment on above: Performed By: #### C BC, ADIFF, ANEU, BMP, GFR ####[place] [address] Aspartate aminotransferase (AST) 15 U/L Normal 10-40 [facility] ([place]) Comment on above: Performed By: #### C BC, ADIFF, ANEU, BMP, GFR ####[place] [address] Bili Total 0.5 mg/dL Normal 0.2-1.0 [facility] ([place]) Comment on above: Performed By: #### C BC, ADIFF, ANEU, BMP, GFR ####[address] [address] BUN/Creatinine Ratio 18 ratio Normal 7-27 [facility] ([place]) Comment on above: Performed By: #### C BC, ADIFF, ANEU, BMP, GFR ####[address] [address] Calcium 9.3 mg/dL Normal 8.4-10.2 [facility] ([place]) Comment on above: Performed By: #### C BC, ADIFF, ANEU, BMP, GFR ####[address] [address] Chloride 102 mmol/L Normal 98-107 [facility] ([place]) Comment on above: Performed By: #### C BC, ADIFF, ANEU, BMP, GFR ####[place] [address] CO2 28 mmol/L Normal 23-31 [facility] ([place]) Comment on above: Performed By: #### C BC, ADIFF, ANEU, BMP, GFR ####[place] [address] Creatinine 0.7 mg/dL Normal 0.6-1.2 [facility] ([place]) Comment on above: Performed By: #### C BC, ADIFF, ANEU, BMP, GFR ####[place] [address] Electrolyte Balance 11.0 mEq/L Normal [facility] ([place]) Comment on above: Performed By: #### C BC, ADIFF, ANEU, BMP, GFR ####[place] [address] Globulin 2.5 G/dL Normal [facility] ([place]) Comment on above: Performed By: #### C BC, ADIFF, ANEU, BMP, GFR ####[place] [address] Glucose mass conc 81 mg/dL Normal 80-115 [facility] ([place]) Comment on above: Performed By: #### C BC, ADIFF, ANEU, BMP, GFR ####[place] [address] Potassium molar conc 4.2 mmol/L Normal 3.5-5.1 [facility] ([place]) Comment on above: Performed By: #### C BC, ADIFF, ANEU, BMP, GFR ####[address] [address] Protein 7.0 G/dL Normal 6.0-8.3 [facility] ([place]) Comment on above: Performed By: #### C BC, ADIFF, ANEU, BMP, GFR ####[address] [address] Sodium 141 mmol/L Normal 136-146 [facility] ([place]) Comment on above: Performed By: #### C BC, ADIFF, ANEU, BMP, GFR ####[address] [address] Urea nitrogen 12.5 mg/dL Normal 7.0-18.0 [facility] ([place]) Comment on above: Performed By: #### C BC, ADIFF, ANEU, BMP, GFR ####[address] [address] LIPIDon 06-06-2017 Cholesterol 251 mg/dL High 131-200 [facility] ([place]) Comment on above: Result Comment: Chol esterol Reference Interval:Less than 200 [id number] Borderline high syfl675 and above High risk Performed By: #### C BC, ADIFF, ANEU, BMP, GFR ####[address] [address] HDL Cholesterol 70 mg/dL Normal 35-90 [facility] ([place]) Comment on above: Result Comment: HDL Reference Interval:Less than 40 Low - high risk60 or above Optimal/lowers risk Performed By: #### C BC, ADIFF, ANEU, BMP, GFR ####[place] [address] [place] [address] LDL Cholesterol 158 mg/dL High 0-130 [facility] ([place]) Comment on above: Result Comment: LDL is a calculated result and requires a 12- hr fast.LDL Reference Interval:Less than 100 [id number] Near or above [id number] Borderline high yghw665-587 High usad111 and above Very high risk Performed By: #### C BC, ADIFF, ANEU, BMP, GFR ####[place] [address] [place] [address] Triglyceride 116 mg/dL Normal 40-150 [facility] ([place]) Comment on above: Result Comment: Trig lyceride Reference Interval:Less than 150 [id number] Borderline high qevy101-547 High mjns490 or higher Very high risk Performed By: #### C BC, ADIFF, ANEU, BMP, GFR ####[place] [address] TSHon 06-06-2017 Thyroid stimulating hormone (TSH) 0.41 mcIU/mL Normal 0.27-4.20 [facility] ([place]) Comment on above: Performed By: #### C BC, ADIFF, ANEU, BMP, GFR ####[place] [address] VIDHon 06-06-2017 Vit. D 25-Hydroxy 48 ng/mL Normal [facility] ([place]) Comment on above: Result Comment: Inte rpretive Values Based on Total 25(OH)D: Severe Deficiency <20 ng/mL Mild to Moderate Deficiency 20-30 ng/mL Optimum Levels 30-100 ng/mL Toxicity Possible >100 ng/mL Performed By: #### C BC, ADIFF, ANEU, BMP, GFR ####[place] [address] Operative Reporton 7 Operative Report Normal [facility] ([place]) Final Surgical Pathology Rep [facility] 05-02-2017 Final Surgical Pathology Report . Pathology ReportsAccession: Collected Date/Time: Received Date/Time: Pathologist:[id number] 05/01/2017 10:58 EDT 05/01/2017 12:08 EDT MD KARO RICHMOND Final Surgical Pathology ReportDIAGNOSIS:HEMORRHOIDS: - INTERNAL HEMORRHOIDS IDENTIFIED.CLINICAL INFORMATION:Procedure: RECTAL EXAM UNDER ANESTHESIA, HEMORRHOIDECTOMY / LATERAL SUPERFICIAL INTERNAL SPHINCTEROTOMYPreoperative diagnosis: HEMORRHOIDSPostoperative diagnosis: HEMORRHOIDSSPECIMEN:A HEMORRHOIDSGROSS DESCRIPTION:_ Received in formalin labeled hemorrhoid is 1.5 cm red soft tissue, partially surfaced by estevez skin and mucosa. Sectioning shows focally red cut surfaces. A S -1Dictated by CALIXTO KHAN ([facility])MICROSCOPIC DESCRIPTION:Slides reviewed.Electronically Signed byPathology Report verified by [facility] HospitalElectronically signed by KARO MARTINEZign out Date: 05/02/2017 12:56Performing Lab: [facility], [address] [place] [id number] [place] [address] Normal [facility] ([place]) Comment on above: Performed By: #### C BC, ADIFF, ANEU, BMP, GFR ####[place] [address] Anesthesiology Consultationo n 05-01-2017 Anesthesiology Consultation Normal [facility] ([place]) Depart Summaryon 05-01-2017 Depart Summary Normal [facility] ([place]) Main OR Intraop Recordon Main OR Intraop Record Normal [facility] ([place]) Outpatient Patient Summaryon 05-01-2017 Outpatient Patient Summary Normal [facility] ([place]) Progress Note-Nurseon 2016 Progress Note-Nurse Normal [facility] ([place]) .Auto Diffon 04-29-2017 Basophils Auto #/vol (Bld) 0.00 10 3/mcL Normal 0.00-0.27 [facility] ([place]) Comment on above: Performed By: #### C BC, ADIFF, ANEU, BMP, GFR ####[address] [address] Basophils/100 WBC Auto (Bld) 0.6 % Normal 0.0-2.5 [facility] ([place]) Comment on above: Performed By: #### C BC, ADIFF, ANEU, BMP, GFR ####[address] [address] Eosinophils 0.10 10 3/mcL Normal 0.00-0.65 [facility] ([place]) Comment on above: Performed By: #### C BC, ADIFF, ANEU, BMP, GFR ####[address] [address] Eosinophils/100 leukocytes 2.3 % Normal 0.0-6.0 [facility] ([place]) Comment on above: Performed By: #### C BC, ADIFF, ANEU, BMP, GFR ####[address] [address] Lymphocytes 2.30 10 3/mcL Normal 0.90-4.32 [facility] ([place]) Comment on above: Performed By: #### C BC, ADIFF, ANEU, BMP, GFR ####[address] [address] Lymphocytes/100 leukocytes 35.6 % Normal 20.0-40.0 [facility] ([place]) Comment on above: Performed By: #### C BC, ADIFF, ANEU, BMP, GFR ####[address] [address] Monocytes 0.70 10 3/mcL Normal 0.09-1.40 [facility] ([place]) Comment on above: Performed By: #### C BC, ADIFF, ANEU, BMP, GFR ####[address] [address] Monocytes/100 leukocytes 10.4 % Normal 2.0-13.0 [facility] ([place]) Comment on above: Performed By: #### C BC, ADIFF, ANEU, BMP, GFR ####[address] [address] Neutrophils/100 WBC Auto (Bld) 51.1 % Normal 50.0-75.0 [facility] ([place]) Comment on above: Performed By: #### C BC, ADIFF, ANEU, BMP, GFR ####[address] [address] .GFRon 04-29-2017 eGFR (non-black) mL/min/{1.73_m2} Normal [facility] ([place]) Comment on above: Result Comment: GFR Population mean for , Non- Americans Ages 20-29 = 116 mL/min/1.73 sq.m. Ages 30-39 = 107 mL/min/1.73 sq.m. Ages 40-49 = 99 mL/min/1.73 sq.m. Ages 50-59 = 93 mL/min/1.73 sq.m. Ages 60-69 = 85 mL/min/1.73 sq.m. Ages 70+ = 75 mL/min/1.73 sq.m.Chronic Kidney Disease: Less than 60 mL/min/1.73 square metersEnd Stage Renal Disease: Less than 15 mL/min/1.73 square meters Performed By: #### C BC, ADIFF, ANEU, BMP, GFR ####[place] [address] .NEUABSon 04-29-2017 Neutrophils 3.30 10 3/mcL Normal 2.25-8.10 [facility] ([place]) Comment on above: Performed By: #### C BC, ADIFF, ANEU, BMP, GFR ####[place] [address] BMPon 04-29-2017 BUN/Creatinine Ratio 14.5 ratio Normal 10.0-22.0 [facility] ([place]) Comment on above: Performed By: #### C BC, ADIFF, ANEU, BMP, GFR ####[place] [address] Creatinine 0.76 mg/dL Normal 0.50-1.20 [facility] ([place]) Comment on above: Performed By: #### C BC, ADIFF, ANEU, BMP, GFR ####[place] [address] Calcium 9.5 mg/dL Normal 8.4-10.1 [facility] ([place]) Comment on above: Performed By: #### C BC, ADIFF, ANEU, BMP, GFR ####[place] [address] Chloride 105 mmol/L Normal 98-110 [facility] ([place]) Comment on above: Performed By: #### C BC, ADIFF, ANEU, BMP, GFR ####[place] [address] CO2 28 mmol/L Normal 22-32 [facility] ([place]) Comment on above: Performed By: #### C BC, ADIFF, ANEU, BMP, GFR ####[place] [address] Electrolyte Balance 8.0 mEq/L Normal 4.0-15.0 [facility] ([place]) Comment on above: Performed By: #### C BC, ADIFF, ANEU, BMP, GFR ####[address] [address] Glucose mass conc 90 mg/dL Normal 82-115 [facility] ([place]) Comment on above: Performed By: #### C BC, ADIFF, ANEU, BMP, GFR ####[address] [address] Potassium molar conc 4.9 mmol/L Normal 3.5-5.0 [facility] ([place]) Comment on above: Performed By: #### C BC, ADIFF, ANEU, BMP, GFR ####[address] [address] Sodium 141 mmol/L Normal 136-145 [facility] ([place]) Comment on above: Performed By: #### C BC, ADIFF, ANEU, BMP, GFR ####[place] [address] Urea nitrogen 11.0 mg/dL Normal 8.0-22.0 [facility] ([place]) Comment on above: Performed By: #### C BC, ADIFF, ANEU, BMP, GFR ####[address] [address] CBCon 04-29-2017 Erythrocyte distribution width Auto Ratio (RBC) 14.1 % Normal 11.5-15.5 [facility] ([place]) Comment on above: Performed By: #### C BC, ADIFF, ANEU, BMP, GFR ####[address] [address] Erythrocytes (RBC) 4.61 10 6/mcL Normal 4.10-5.30 [facility] ([place]) Comment on above: Performed By: #### C BC, ADIFF, ANEU, BMP, GFR ####[address] [address] Hematocrit (HCT) 40.2 % Normal 34.0-46.0 [facility] ([place]) Comment on above: Performed By: #### C BC, ADIFF, ANEU, BMP, GFR ####[address] [address] Hemoglobin mass conc (Bld) 13.4 G/dL Normal 12.0-16.0 [facility] ([place]) Comment on above: Performed By: #### C BC, ADIFF, ANEU, BMP, GFR ####[place] [address] MCH 29.0 pg Normal 27.0-33.0 [facility] ([place]) Comment on above: Performed By: #### C BC, ADIFF, ANEU, BMP, GFR ####[place] [address] MCHC mass conc (RBC) 33.3 G/dL Normal 32.0-36.0 [facility] ([place]) Comment on above: Performed By: #### C BC, ADIFF, ANEU, BMP, GFR ####[place] [address] MCV 87.2 fL Normal 80.0-99.0 [facility] ([place]) Comment on above: Performed By: #### C BC, ADIFF, ANEU, BMP, GFR ####[place] [address] Platelet mean volume (PMV) 7.4 fL Normal 6.6-10.5 [facility] ([place]) Comment on above: Performed By: #### C BC, ADIFF, ANEU, BMP, GFR ####[place] [address] Platelets 347 10 3/mcL Normal 150-450 [facility] ([place]) Comment on above: Performed By: #### C BC, ADIFF, ANEU, BMP, GFR ####[address] [address] WBC (Leukocytes) 6.50 10 3/mcL Normal 4.50-10.80 [facility] ([place]) Comment on above: Performed By: #### C BC, ADIFF, ANEU, BMP, GFR ####[address] [address] Vital Signs Date Time Vital Sign Value Performing Clinician Faci lity 05-30-2023 18:39-0500 Body height 156.01 cm [facility] 05-30-2023 18:39-0500 Body mass index (BMI) [Ratio] 27.4 kg/m2 [facility] 05-30-2023 18:39-0500 Body temperature 98.3 [degF] [facility] 05-30-2023 18:39-0500 Body weight 66.81 kg [facility] 05-30-2023 18:39-0500 Diastolic blood pressure 100 mm[Hg] [facility] 05-30-2023 18:39-0500 Heart rate 78 /min [facility] 05-30-2023 18:39-0500 Respiratory rate 16 /min [facility] 05-30-2023 18:39-0500 SaO2% (BldA) [Mass fraction] 100 % [facility] 05-30-2023 18:39-0500 Systolic blood pressure 141 mm[Hg] [facility] 08-05-2021 08:57-0500 Body temperature 98.2 [degF] Dr. Sabino Romano Work Phone: [facility] Work Phone: 08-05-2021 08:57-0500 Diastolic blood pressure 82 mm[Hg] Dr. Sabino Romano Work Phone: [facility] Work Phone: 08-05-2021 08:57-0500 Heart rate 85 /min Dr. Sabino Romano Work Phone: [facility] Work Phone: 08-05-2021 08:57-0500 Respiratory rate 16 /min Dr. Sabino Romano Work Phone: [facility] Work Phone: 08-05-2021 08:57-0500 SaO2% (BldA) [Mass fraction] 92 % Dr. Sabino Romano Work Phone: [facility] Work Phone: 08-05-2021 08:57-0500 Systolic blood pressure 136 mm[Hg] Dr. Sabino Romano Work Phone: [facility] Work Phone: 07-29-2021 08:54-0500 Body height 155.[address] Sabino Romano Work Phone: [facility] Work Phone: 07-29-2021 08:54-0500 Body mass index (BMI) [Ratio] 27.8 kg/m2 Dr. Sabino Romano Work Phone: [facility] Work Phone: 07-29-2021 08:54-0500 Body temperature 99.1 [degF] Dr. Sabino Romano Work Phone: [facility] Work Phone: 07-29-2021 08:54-0500 Body weight 67.[address] Sabino Romano Work Phone: [facility] Work Phone: 07-29-2021 08:54-0500 Diastolic blood pressure 92 mm[Hg] Dr. Sabino Romano Work Phone: [facility] Work Phone: 07-29-2021 08:54-0500 Heart rate 82 /min Dr. Sabino Romano Work Phone: [facility] Work Phone: 07-29-2021 08:54-0500 Respiratory rate 18 /min Dr. Sabino Romano Work Phone: [facility] Work Phone: 07-29-2021 08:54-0500 SaO2% (BldA) [Mass fraction] 96 % Dr. Sabino Romano Work Phone: [facility] Work Phone: 07-29-2021 08:54-0500 Systolic blood pressure 120 mm[Hg] Dr. Sabino Romano Work Phone: [facility] Work Phone: Encounters Encounter Date Encounter Type Care Provider Facility Start[facility]: 06-07-2024 End: 06-07-2024 ambulatory Butros Latouf Facility:[facility] Start: 03-01-2024 End: 03-01-2024 ambulatory Butros Latouf Facility:[facility] Start: 01-24-2024 End: 01-24-2024 Emergency department patient visit RUTH FLOWERS [facility] Start: 01-15-2024 ambulatory SABINO Felipe [facility] Start: 11-04-2023 End: 11-04-2023 ambulatory Butros Latouf Facility:[facility] Start: 10-21-2023 ambulatory SABINO Felipe [facility] Start: 10-20-2023 End: 10-20-2023 ambulatory Butros Latouf Facility:[facility] Start: 09-16-2023 End: 09-16-2023 ambulatory [facility] Work Phone: Start: 09-16-2023 End: 09-16-2023 [facility] Start: 09-16-2023 End: 09-16-2023 ambulatory [facility] Latouf Facility:[facility] Start: 05-30-2023 End: 05-30-2023 Emergency department patient visit [facility] Work Phone: Start: 09-20-2021 End: 09-20-[address] Sabino Romano Work Phone: [facility]Outpatient Bone Densitometry Start: 09-15-2021 End: 09-15-[address] Sabino Romano Work Phone: [facility] Start: 08-05-2021 End: 08-05-[address] Sabino Romano Work Phone: [facility]Rad[facility], [facility] Start: 08-05-2021 End: 08-05-[address] Sabino Romano Work Phone: [facility] Start: 07-29-2021 End: 07-29-[address] Sabino Romano Work Phone: [facility] Start: 06-06-[address] Sabino Romano Work Phone: [facility] Start: 01-09-2018 End: 01-10-2018 Patient encounter SABINO ROMANO [facility] Start: 06-06-2017 End: 06-07-2017 Ambulatory SABINO ROMANO Facility:[facility] Start: 05-01-2017 End: 05-01-2017 Ambulatory HOLDEN WEBB Facility:A Start: 04-29-2017 End: 04-30-2017 Ambulatory HOLDEN WEBB Facility:[facility] Start: 08-04-2016 End: 08-08-2016 Evaluation and management of inpatient NO REFERRING DR Facility:[facility] Procedures Date Procedure Procedure Detail Performing Clinician Start: 05-30-2023 Plain x-ray of hand Start: 09-20-2021 Dual energy X-ray absorptiometry Dr. Sabino Romano Work Phone: Start: 09-20-2021 Screening mammography Jaspreet Romano Work Phone: Start: 08-05-2021 Plain chest X-ray Dr. Oliva Romano Work Phone: Plan of Treatment Date Care Activity Detail Author Start: 05-30-2023 [facility] Patient Education ED Hand Contusion [facility] Work Phone: Patient referral [facility] Work Phone: Immunizations Immunization Date Immunization Notes Care Provider [facility] 09-28-2020 Covid (Pfizer) Dr. Sabino Rivera Work Phone: [facility] 09-07-2020 Covid (Pfizer) Dr. Sabino Rivera Work Phone: [facility] Payers Date Payer Category Payer Self-pay [id number] 2023 Unknown [id number] 2018 Medicare [id number] 2016 Unknown [id number] 1955 Unknown [id number] 2.16.8 [id number] 1955 Unknown [id number] 2.16.8 [id number] 1953 Unknown [id number] 2.16.8 [id number] 1953 Unknown [id number] 2.16.8 [id number] 1955 Unknown [id number] 2.16.8 [id number] Unknown [id number] Unknown [id number] Unknown [id number] 2.16.8 [id number] Unknown [id number] 2.16.8 [id number] Unknown [id number] 2.16.8 [id number] Unknown [id number] 2.16.8 [id number] Unknown [id number] 2.16.8 [id number] Social History Date Type Detail Facility Start: 08-05-2021 End: 05-30-2023 Tobacco smoking status NHIS Unknown if ever smoked [facility] Start: 1955 Sex Assigned At Female [facility] Evaluation note Note Date & Type Note Facility Evaluation note Diagnosis Onset Date Acute sinusitis acute Cough acute Head congestion acute [facility] Work Phone: Evaluation note Note Date & Type Note Facility Evaluation note No assessment information availa ble [facility] Work Phone: Summary Purpose Family History No Family History Records FoundNo Family History Records FoundNo Family History Records FoundNo Family History Records FoundNo Family History Records FoundNo Family History Records FoundNo Family History Records Found Advance Directives No Advanced Directives Records Found Advance Directive Response Recorded Date/ Time Living Will No May 30, 023 6:51pm Power of Legal Manager No May 30, 2023 6:51pm Advance Directive Response Recorded Date/ Time Living Will No May 30 023 7:51pm Power of Legal Manager No May 30, 2023 7:51pm Chief Complaint and Reason for Visit Chief Complaint VIT D CHECK COUGH/CONGESTION/COVID TEST SINUS CBC,CMP SCREENING Reason for Visit Acute sinusitis Cough Head congestion Chief Complaint WRIST Additional Source Comments INFORMATION SOURCE (unrecogn ized section and content) DATE CREATED AUTHOR 12/30/2017 [facility] ([place]) DATE CREATED AUTHOR AUTHOR'S ORGANIZ ATION 12/31/2017 [facility] DATE CREATED AUTHOR AUTHOR'S ORGANIZ ATION 01/20/2018 [facility] DATE CREATED AUTHOR AUTHOR'S ORGANIZ ATION 01/30/2020 [facility] DATE CREATED AUTHOR AUTHOR'S ORGANIZ ATION [facility]/2024 [facility] System DATE CREATED AUTHOR AUTHOR'S ORGANIZ ATION 07/08/2024 [facility] DATE CREATED AUTHOR AUTHOR'S ORGANIZ ATION 10/15/2024 [facility] Goals (unrecognized section and content) Goals may be documented in a n alternate sectionGoals may be documented in an alternate sectionGoals may be documented in an alternate sectionGoals may be documented in an alternate section Care Teams (unrecognized sec tion and content) Team Status: Active Member Role Status Dates Dr. Sabino Romano MD Family Provider Active Dr. Sabino Romano MD Primary Care Provider Active Team Status: Inactive Member Role Status Dates Dr. Sabino Romano MD Primary Care Provider Active Dr. Jorden Mejia , DO Emergency Provider Active Team Status: Inactive Member Role Status Dates Dr. Sabino Romano MD Primary Care Provider Active Dr. Jorden Mejia DO Attending Provider, Emergency Ever pereira Active Team Status: Inactive Member Role Status Dates Dr. Sabino Romano MD Primary Care Prov ider, Attending Provider, Referring Provider Active FOR RECORDS PERTAINING TO PATIENTS WHO ARE [...] BE BASED ON THE PRIMARY CLINICAL RECORDS. [employer] [facility]. provides no warranty or guarantee of the accuracy or completeness of information in this document.
== END | disposition home or self-care (01) ==
LOC: MTLAB 09:14
PROVIDERS: PCP Internal Medicine; Referring Provider Internal Medicine; Visit Provider Internal Medicine
DX: I10 Essential (primary) hypertension (principal); E78.00 Pure hypercholesterolemia, unspecified; E03.9 Hypothyroidism, unspecified; R79.89 Other specified abnormal findings of blood chemistry; E55.9 Vitamin D deficiency, unspecified
CPT/HCPCS: 36415; 80053; 80061; 82306; 82607; 84439; 84443; 85025